=== PATIENT | male | born 1955 | race Caucasian/White ===

== ENCOUNTER 2016-12-19 13:47 | Inpatient (IN) | payer SELFPAY ==
[~2016-12-19] VITALS: Ht 172.7 cm; Wt 85.2 kg
[2016-12-19 14:39] LABS: Basophils # (auto) 0.1 uL; Basophils % (auto) 0.8 % (0.0-2.0); Eosinophils # (auto) 0.1 uL; Eosinophils % (auto) 1.3 % (0.0-7.0); Hematocrit 49.6 % (41.0-53.0); Hemoglobin 17.3 g/dL (13.5-17.5); Lymphocytes # (auto) 2.8 uL; Lymphocytes % (auto) 27.8 % (10.0-50.0); Mean Corpuscular Hemoglobin 31.8 pg (28.0-32.0); Mean Corpuscular Hgb Conc. 34.8 g/dL (32.0-36.0); Mean Corpuscular Volume 91.4 fL (80.0-100.0); Mean Platelet Volume 7.1 fL (6.9-10.8); Monocytes # (auto) 0.7 uL; Monocytes % (auto) 6.9 % (0.0-12.0); Neutrophils # (auto) 6.3 uL; Neutrophils % (auto) 63.2 % (37.0-80.0); Platelet Count (auto) 273 10^3/uL (140-450); Red Cell Distribution Width 13.5 % (11.8-14.3); White Blood Cell 9.9 10^3/uL (4.4-10.8)
[2016-12-19 15:07] LABS: Alkaline Phosphatase 91 U/L (45-117); Anion Gap 8 (5-15); Aspartate Aminotransferase 14 U/L (15-37); BUN/Creatinine Ratio 18.6; Bilirubin, Total 0.4 mg/dL (0.2-1.0); Blood Urea Nitrogen 18 mg/dL (7-18); Carbon Dioxide 24 mmol/L (21-32); Chloride 106 mmol/L (98-107); GFR African American 101 mL/min; GFR Non-African American 83 mL/min; Glucose 118 mg/dL (74-106); Potassium 3.4 mmol/L (3.5-5.1); Sodium 138 mmol/L (136-145); Total Protein 8.1 g/dL (6.4-8.2)
[2016-12-19] MEDS ORDERED: ASPirin 81 mg TAB PO ONE (17:00)
[2016-12-19] MEDS ORDERED: DILTIAZEM HCL 25 MG/5 ML VIAL IV ONE (17:00)
[2016-12-19] MEDS ORDERED: LACTULOSE 20Gm/30ML SOLN PO PRN (17:15)
[2016-12-19] MEDS ORDERED: MORPHINE SULF INJ 2 MG/ML SYRINGE 1ML IV PRN (17:15)
[2016-12-19] MEDS ORDERED: ACETAMINOPHEN 500 MG TAB PO PRN (17:15)
[2016-12-19] MEDS ORDERED: HYDROmorphone HCL 2 MG/ML VL IV PRN (17:15)
[2016-12-19] MEDS ORDERED: LORazepam 0.5 MG TAB PO PRN (17:15)
[2016-12-19] MEDS ORDERED: TEMAZEPAM 15 MG CAP PO PRN (17:15)
[2016-12-19] MEDS ORDERED: NITROGLYCERIN 0.4 MG SL TAB SL PRN (17:15)
[2016-12-19] MEDS ORDERED: HYDROcodone-ACET 5/325MG TAB PO PRN (17:15)
[2016-12-19 17:25] LABS: INR 1.01 (0.9-1.15); Partial Thromboplastin Time 29.6 sec (22.64-33.71)
[2016-12-19] MEDS ORDERED: ENOXAPARIN SOD 40 MG/0.4 ML SYRINGE SC ONE (17:45)
[2016-12-19] MEDS ORDERED: PANTOPRAZOLE 40 MG TAB PO ONE (17:45)
[2016-12-19] MEDS: SODIUM CHLORIDE 0.9% 1,000 ML IV SCH (18:01)
[2016-12-19 21:00] VITALS: BP 137/91
[2016-12-19 21:05] VITALS: BP 137/91
[2016-12-19] MEDS: ATORVASTATIN 20 MG TAB PO SCH (21:33)
[2016-12-19] MEDS: METOPROLOL TARTRATE 25 MG TAB PO SCH (21:34)
[2016-12-19 22:06] VITALS: BP 137/91
[2016-12-19 23:26] VITALS: BP 137/91
[2016-12-20] MEDS ORDERED: ATOR10TA52 PO (01:09)
[2016-12-20] MEDS ORDERED: AMLO5TAB2 PO (01:09)
[2016-12-20] MEDS ORDERED: ASPI81TA27 PO (01:09)
[2016-12-20] MEDS ORDERED: LOSA50TA6 PO (01:09)
[2016-12-20 05:00] VITALS: BP 136/81
[2016-12-20] MEDS: SODIUM CHLORIDE 0.9% 1,000 ML IV SCH (06:37)
[2016-12-20 06:42] LABS: Albumin 3.5 g/dL (3.4-5.0); BUN/Creatinine Ratio 21.5; Bilirubin, Total 0.8 mg/dL (0.2-1.0); Calcium 8.7 mg/dL (8.5-10.1); Potassium 3.8 mmol/L (3.5-5.1); Total Protein 6.8 g/dL (6.4-8.2)
[2016-12-20 09:00] VITALS: BP 142/99
[2016-12-20] MEDS ORDERED: ENOXAPARIN SOD 40 MG/0.4 ML SYRINGE SC SCH (10:00)
[2016-12-20] MEDS ORDERED: NITROGLYCERIN 0.2MG/HR TOPICAL PATCH TD SCH (10:00)
[2016-12-20] MEDS: ASPirin 81 mg TAB PO SCH (10:07)
[2016-12-20] MEDS: PANTOPRAZOLE 40 MG TAB PO SCH (10:08)
[2016-12-20] MEDS: METOPROLOL TARTRATE 25 MG TAB PO SCH (10:08)
[2016-12-20 10:37] LABS: B-Type Natriuretic Peptide 120.34 pg/mL (0-100)
[2016-12-20] MEDS ORDERED: METOPROLOL TARTRATE 25 MG TAB PO ONE (10:45)
[2016-12-20] MEDS: APIXABAN 5 MG TAB PO SCH ×2 (12:34→21:20)
[2016-12-20 13:00] VITALS: BP 129/89
[2016-12-20] MEDS ORDERED: LOSARTAN POTASSIUM 50 MG TAB PO ONE (14:45)
[2016-12-20 17:00] VITALS: BP 129/85
[2016-12-20 20:00] VITALS: BP 118/70
[2016-12-20 21:14] VITALS: BP 118/70
[2016-12-20] MEDS: ATORVASTATIN 20 MG TAB PO SCH (21:20)
[2016-12-20] MEDS: CARVEDILOL 3.125 MG TAB PO SCH (21:22)
[2016-12-20] MEDS ORDERED: METOPROLOL TARTRATE 50 MG TAB PO SCH (22:00)
[2016-12-21 05:00] VITALS: BP 146/88
[2016-12-21 06:47] LABS: BUN/Creatinine Ratio 20.2; Calcium 8.6 mg/dL (8.5-10.1)
[2016-12-21] MEDS: CARVEDILOL 3.125 MG TAB PO SCH ×2 (08:42→20:18)
[2016-12-21 09:31] VITALS: BP 148/97
[2016-12-21] MEDS: ASPirin 81 mg TAB PO SCH (09:45)
[2016-12-21] MEDS: APIXABAN 5 MG TAB PO SCH ×2 (09:46→22:07)
[2016-12-21] MEDS: LOSARTAN POTASSIUM 50 MG TAB PO SCH (09:46)
[2016-12-21] MEDS: PANTOPRAZOLE 40 MG TAB PO SCH (09:54)
[2016-12-21 14:17] VITALS: BP 139/79
[2016-12-21 17:15] VITALS: BP 143/84
[2016-12-21 20:00] VITALS: BP 115/74
[2016-12-21] MEDS: ATORVASTATIN 20 MG TAB PO SCH (22:06)
[2016-12-21 23:03] VITALS: BP 132/87
[2016-12-22 05:21] VITALS: BP 137/96
[2016-12-22] MEDS: CARVEDILOL 3.125 MG TAB PO SCH ×2 (08:19→20:22)
[2016-12-22 09:56] VITALS: BP 152/108
[2016-12-22] MEDS: PANTOPRAZOLE 40 MG TAB PO SCH (10:06)
[2016-12-22] MEDS: ASPirin 81 mg TAB PO SCH (10:07)
[2016-12-22] MEDS: LOSARTAN POTASSIUM 50 MG TAB PO SCH (10:07)
[2016-12-22] MEDS: APIXABAN 5 MG TAB PO SCH ×2 (10:07→21:57)
[2016-12-22 13:14] VITALS: BP 135/74
[2016-12-22 16:56] VITALS: BP 138/86
[2016-12-22 20:00] VITALS: BP 134/85
[2016-12-22 21:50] VITALS: BP 134/85
[2016-12-22] MEDS: ATORVASTATIN 20 MG TAB PO SCH (21:57)
[2016-12-23 05:43] VITALS: BP 158/88
[2016-12-23] MEDS: CARVEDILOL 3.125 MG TAB PO SCH (08:42)
[2016-12-23] MEDS ORDERED: ADENOSINE 72 MG in GIVE UN-DILUTED 0 ML IV ONE (09:00)
[2016-12-23 09:16] VITALS: BP 141/88
[2016-12-23] MEDS: LOSARTAN POTASSIUM 50 MG TAB PO SCH (11:36)
[2016-12-23] MEDS: ASPirin 81 mg TAB PO SCH (11:37)
[2016-12-23] MEDS: PANTOPRAZOLE 40 MG TAB PO SCH (11:37)
[2016-12-23] MEDS: APIXABAN 5 MG TAB PO SCH (11:37)
[2016-12-23 13:00] VITALS: BP 138/92
[2016-12-23] MEDS ORDERED: APIX5TAB PO (15:36)
[2016-12-23] MEDS ORDERED: CAR125T PO (15:36)
[2016-12-23] MEDS ORDERED: LOSA50TA6 PO (15:36)
[2016-12-23] MEDS ORDERED: ASPI81TA27 PO (15:36)
[2016-12-23] MEDS ORDERED: PANT40T PO (15:36)
[2016-12-23] MEDS ORDERED: ATOR20TA50 PO (15:36)
[2016-12-23 17:27] VITALS: BP 151/92
[2016-12-23] MEDS ORDERED: CARVEDILOL 12.5 MG TAB PO SCH ×3 (20:00)
== END 2016-12-23 18:23 | disposition home or self-care (01) | DRG 303 ==
LOC: ER 13:47 → TELE 13:48 → TELE-CENTR 20:54
PROVIDERS: ADMIT Internal Medicine; ATTEND Internal Medicine
DX: I25.5 Ischemic cardiomyopathy (principal); I48.92 Unspecified atrial flutter; I48.91 Unspecified atrial fibrillation; E78.00 Pure hypercholesterolemia, unspecified; E78.5 Hyperlipidemia, unspecified; E87.6 Hypokalemia; I10 Essential (primary) hypertension; Z53.29 Procedure and treatment not carried out because of patient's decision for other reasons; I25.10 Atherosclerotic heart disease of native coronary artery without angina pectoris; Z87.891 Personal history of nicotine dependence; Z83.3 Family history of diabetes mellitus; Z80.1 Family history of malignant neoplasm of trachea, bronchus and lung; I25.2 Old myocardial infarction; Z95.5 Presence of coronary angioplasty implant and graft; Z82.49 Family history of ischemic heart disease and other diseases of the circulatory system
CPT/HCPCS: 36415; 71020; 78452; 80048; 80053; 80061; 80307; 82550; 83735; 83880; 84443; 84484; 85025; 85379; 85610; 85652; 85730; 86141; 93005; 93017; 93306; 94761; 96361; 96372; 96374; J0153

== ENCOUNTER 2017-12-04 11:21 | Inpatient (IN) | payer MEDICAID, OTHER ==
[~2017-12-04] VITALS: Ht 170.2 cm; Wt 75.2 kg
[~2017-12-04 11:21] MED LIST: APIX5TAB PO; ASPI81TA27 PO; ATOR20TA50 PO; CAR125T PO; LOSA-46 PO; PANT40T PO
[2017-12-04] MEDS ORDERED: CLOPIDOGREL BISULFATE 75 MG TAB PO ONE (11:45)
[2017-12-04 12:11] LABS: Basophils # (auto) 0.1 uL; Basophils % (auto) 0.9 % (0.0-2.0); Eosinophils # (auto) 0 uL; Eosinophils % (auto) 0.3 % (0.0-7.0); Hematocrit 49.1 % (41.0-53.0); Hemoglobin 17.5 g/dL (13.5-17.5); Lymphocytes # (auto) 1.5 uL; Lymphocytes % (auto) 15.6 % (10.0-50.0); Mean Corpuscular Hemoglobin 32.4 pg (28.0-32.0); Mean Corpuscular Hgb Conc. 35.5 g/dL (32.0-36.0); Mean Corpuscular Volume 91.1 fL (80.0-100.0); Monocytes # (auto) 0.5 uL; Monocytes % (auto) 5.5 % (0.0-12.0); Neutrophils # (auto) 7.7 uL; Neutrophils % (auto) 77.7 % (37.0-80.0); Nucleated Red Blood Cells % 0.1 %; Platelet Count (auto) 253 10^3/uL (140-450); Red Cell Distribution Width 13.6 % (11.8-14.3); White Blood Cell 9.9 10^3/uL (4.4-10.8)
[2017-12-04 12:26] LABS: Alanine Aminotransferase 25 U/L (16-61); Albumin 3.9 g/dL (3.4-5.0); Anion Gap 8 (5-15); Aspartate Aminotransferase 21 U/L (15-37); BUN/Creatinine Ratio 14.6; Blood Urea Nitrogen 13 mg/dL (7-18); Calcium 8.6 mg/dL (8.5-10.1); Carbon Dioxide 23 mmol/L (21-32); Chloride 108 mmol/L (98-107); GFR African American 111 mL/min; GFR Non-African American 91 mL/min; Glucose 122 mg/dL (74-106); Sodium 139 mmol/L (136-145)
[2017-12-04 12:27] LABS: INR 1.04 (0.9-1.15); Partial Thromboplastin Time 29.7 sec (23.78-33.04); Prothrombin Time 11.1 sec (9.27-12.13)
[2017-12-04 12:31] LABS: Alkaline Phosphatase 94 U/L (45-117); Bilirubin, Total 1.2 mg/dL (0.2-1.0)
[2017-12-04] MEDS ORDERED: LORazepam 0.5 MG TAB PO PRN (12:45)
[2017-12-04] MEDS ORDERED: ONDANSETRON HCL 4 MG/2 ML VIAL IV PRN (12:45)
[2017-12-04] MEDS ORDERED: TEMAZEPAM 15 MG CAP PO PRN (12:45)
[2017-12-04] MEDS ORDERED: LACTULOSE 20Gm/30ML SOLN PO PRN (12:45)
[2017-12-04] MEDS ORDERED: NITROGLYCERIN 0.4 MG SL TAB SL PRN (12:45)
[2017-12-04] MEDS ORDERED: DEXTROSE (50%) 50ML SYRG IV PRN (12:45)
[2017-12-04] MEDS ORDERED: MORPHINE SULFATE 4 MG/ML SYR/VIAL IV PRN ×2 (12:45)
[2017-12-04] MEDS: CARVEDILOL 12.5 MG TAB PO SCH ×2 (12:54→23:56)
[2017-12-04] MEDS: APIXABAN 5 MG TAB PO SCH ×2 (12:54→21:29)
[2017-12-04] MEDS ORDERED: ENALAPRIL MALEATE 2.5 MG TAB PO ONE (13:00)
[2017-12-04] MEDS ORDERED: ASPirin 81 mg TAB PO ONE (13:00)
[2017-12-04] MEDS ORDERED: PANTOPRAZOLE 40 MG TAB PO ONE (13:00)
[2017-12-04] MEDS ORDERED: LOSARTAN POTASSIUM 50 MG TAB PO ONE (13:00)
[2017-12-04] MEDS ORDERED: POTASSIUM CHL 20 Meq TABLET PO ONE (13:00)
[2017-12-04] MEDS ORDERED: FUROSEMIDE 40 MG/4 ML VIAL IV ONE (13:00)
[2017-12-04 13:44] LABS: Urine WBC None Seen /hpf (0 - 3)
[2017-12-04 14:05] LABS: Urine Bacteria NONE SEEN /hpf (None Seen); Urine Blood Negative /uL (Negative); Urine Mucus FEW (None Seen)
[2017-12-04 14:08] LABS: Alcohol, Urine < 3.0 mg/dL (0-5); Amphetamine Screen, Urine NEGATIVE (NEGATIVE); Barbiturate Scree,Urine NEGATIVE (NEGATIVE); Benzodiazephine Screen, Urine NEGATIVE (NEGATIVE); Cannabinoid Screen, Urine NEGATIVE (NEGATIVE); Cocaine Screen, Urine NEGATIVE (NEGATIVE); Opiate Scree,Urine NEGATIVE (NEGATIVE); Phencyclidine Screen, Urine NEGATIVE (NEGATIVE)
[2017-12-04] MEDS ORDERED: METOPROLOL TARTRATE 1MG/1ML-5ML VIAL IV ONE (14:30)
[2017-12-04] MEDS ORDERED: DILTIAZEM HCL 25 MG/5 ML VIAL IV ONE (14:30)
[2017-12-04] MEDS ORDERED: DILTIAZEM 125mg/125ml BAG KIT 125 ML IV SCH (14:30)
[2017-12-04] MEDS: ACCU-CHEK COMFORT CURVE STRIP VI SCH ×2 (18:30→23:48)
[2017-12-04] MEDS: ATORVASTATIN 20 MG TAB PO SCH (21:29)
[2017-12-05] MEDS: ACCU-CHEK COMFORT CURVE STRIP VI SCH ×3 (06:00→18:39)
[2017-12-05] MEDS: PANTOPRAZOLE 40 MG TAB PO SCH (10:00)
[2017-12-05] MEDS ORDERED: FUROSEMIDE 40 MG/4 ML VIAL IV SCH (10:00)
[2017-12-05] MEDS ORDERED: LOSARTAN POTASSIUM 50 MG TAB PO SCH (10:00)
[2017-12-05] MEDS ORDERED: ENALAPRIL MALEATE 2.5 MG TAB PO SCH (10:00)
[2017-12-05] MEDS: APIXABAN 5 MG TAB PO SCH ×2 (10:00→21:59)
[2017-12-05] MEDS: POTASSIUM CHL 20 Meq TABLET PO SCH (10:00)
[2017-12-05] MEDS: ASPirin 81 mg TAB PO SCH (10:00)
[2017-12-05] MEDS: CARVEDILOL 12.5 MG TAB PO SCH (13:23)
[2017-12-05 14:15] LABS: Cholesterol 165 mg/dL (< 200); HDL Cholesterol 30 mg/dL (40-59); LDL Cholesterol 141 mg/dL (< 100); Triglycerides 88 mg/dL (< 150)
[2017-12-05 17:00] VITALS: BP 146/81
[2017-12-05 20:00] VITALS: BP 124/75
[2017-12-05] MEDS: ATORVASTATIN 20 MG TAB PO SCH (21:59)
[2017-12-05 22:00] VITALS: BP 124/75
[2017-12-06] MEDS: ACCU-CHEK COMFORT CURVE STRIP VI SCH ×4 (01:11→16:57)
[2017-12-06] MEDS: CARVEDILOL 12.5 MG TAB PO SCH ×2 (01:13→16:57)
[2017-12-06 05:00] VITALS: BP 115/60
[2017-12-06 06:57] LABS: Basophils # (auto) 0 uL; Basophils % (auto) 0.4 % (0.0-2.0); Eosinophils # (auto) 0.2 uL; Eosinophils % (auto) 1.8 % (0.0-7.0); Hematocrit 48.3 % (41.0-53.0); Hemoglobin 16.9 g/dL (13.5-17.5); Lymphocytes % (auto) 28.6 % (10.0-50.0); Mean Corpuscular Hemoglobin 31.9 pg (28.0-32.0); Mean Corpuscular Hgb Conc. 34.9 g/dL (32.0-36.0); Mean Corpuscular Volume 91.3 fL (80.0-100.0); Monocytes # (auto) 0.7 uL; Monocytes % (auto) 6.5 % (0.0-12.0); Neutrophils # (auto) 6.6 uL; Neutrophils % (auto) 62.7 % (37.0-80.0); Nucleated Red Blood Cells % 0.3 %; Platelet Count (auto) 252 10^3/uL (140-450); Red Blood Cells 5.29 10^6/uL (4.5-5.90); Red Cell Distribution Width 14.3 % (11.8-14.3); White Blood Cell 10.6 10^3/uL (4.4-10.8)
[2017-12-06 07:15] LABS: Potassium 3.6 mmol/L (3.5-5.1)
[2017-12-06 07:19] LABS: BUN/Creatinine Ratio 23.1; Calcium 8.7 mg/dL (8.5-10.1)
[2017-12-06 09:00] VITALS: BP 122/65
[2017-12-06] MEDS ORDERED: LACTULOSE 20Gm/30ML SOLN PO ONE (10:30)
[2017-12-06] MEDS: APIXABAN 5 MG TAB PO SCH ×2 (10:46→21:05)
[2017-12-06] MEDS: POTASSIUM CHL 20 Meq TABLET PO SCH (10:46)
[2017-12-06] MEDS: ASPirin 81 mg TAB PO SCH (10:46)
[2017-12-06] MEDS: PANTOPRAZOLE 40 MG TAB PO SCH (10:46)
[2017-12-06 13:00] VITALS: BP 140/86
[2017-12-06 17:01] VITALS: BP 130/85
[2017-12-06] MEDS: DOCUSATE SOD 100 MG CAP PO SCH (21:04)
[2017-12-06] MEDS: ATORVASTATIN 20 MG TAB PO SCH (21:05)
[2017-12-06 22:29] VITALS: BP 107/55
[2017-12-07] MEDS: ACCU-CHEK COMFORT CURVE STRIP VI SCH ×2 (00:30→05:34)
[2017-12-07] MEDS: CARVEDILOL 12.5 MG TAB PO SCH ×2 (00:30→14:42)
[2017-12-07 05:14] VITALS: BP 105/70
[2017-12-07 06:32] LABS: Calcium 8.5 mg/dL (8.5-10.1); Potassium 4.2 mmol/L (3.5-5.1)
[2017-12-07 06:36] LABS: Basophils # (auto) 0.1 uL; Basophils % (auto) 0.8 % (0.0-2.0); Eosinophils # (auto) 0.2 uL; Hematocrit 49.5 % (41.0-53.0); Hemoglobin 17.6 g/dL (13.5-17.5); Lymphocytes # (auto) 3.2 uL; Lymphocytes % (auto) 33.1 % (10.0-50.0); Mean Corpuscular Hemoglobin 32.3 pg (28.0-32.0); Mean Corpuscular Hgb Conc. 35.5 g/dL (32.0-36.0); Mean Corpuscular Volume 90.8 fL (80.0-100.0); Monocytes # (auto) 0.6 uL; Neutrophils # (auto) 5.5 uL; Neutrophils % (auto) 58.1 % (37.0-80.0); Nucleated Red Blood Cells % 0.2 %; Platelet Count (auto) 238 10^3/uL (140-450); Red Blood Cells 5.45 10^6/uL (4.5-5.90); White Blood Cell 9.5 10^3/uL (4.4-10.8)
[2017-12-07 09:00] VITALS: BP 123/59
[2017-12-07] MEDS: POTASSIUM CHL 20 Meq TABLET PO SCH (09:32)
[2017-12-07] MEDS: DOCUSATE SOD 100 MG CAP PO SCH ×2 (09:32→21:29)
[2017-12-07] MEDS: APIXABAN 5 MG TAB PO SCH ×2 (09:32→21:29)
[2017-12-07] MEDS: ASPirin 81 mg TAB PO SCH (09:32)
[2017-12-07] MEDS: PANTOPRAZOLE 40 MG TAB PO SCH (09:33)
[2017-12-07] MEDS: LISINOPRIL 10 MG TAB PO SCH (10:00)
[2017-12-07] MEDS: FUROSEMIDE 20 MG TAB PO SCH (10:00)
[2017-12-07] MEDS: SPIRONOLACTONE 25 MG TAB PO SCH (12:14)
[2017-12-07 13:00] VITALS: BP 118/86
[2017-12-07 17:00] VITALS: BP 150/87
[2017-12-07] MEDS: ATORVASTATIN 20 MG TAB PO SCH (21:29)
[2017-12-07 22:19] VITALS: BP 128/78
[2017-12-08] MEDS: CARVEDILOL 12.5 MG TAB PO SCH ×3 (00:19→23:19)
[2017-12-08 05:03] VITALS: BP 142/83
[2017-12-08 06:16] LABS: Basophils # (auto) 0.1 uL; Basophils % (auto) 0.9 % (0.0-2.0); Eosinophils # (auto) 0.2 uL; Monocytes # (auto) 0.7 uL; Neutrophils # (auto) 7.9 uL; Red Blood Cells 5.63 10^6/uL (4.5-5.90)
[2017-12-08 06:17] LABS: Eosinophils % (auto) 1.9 % (0.0-7.0); Hematocrit 50.8 % (41.0-53.0); Lymphocytes # (auto) 2.7 uL; Lymphocytes % (auto) 23.3 % (10.0-50.0); Mean Corpuscular Hemoglobin 32.4 pg (28.0-32.0); Mean Corpuscular Hgb Conc. 35.8 g/dL (32.0-36.0); Mean Corpuscular Volume 90.3 fL (80.0-100.0); Monocytes % (auto) 5.9 % (0.0-12.0); Nucleated Red Blood Cells % 0.3 %; Platelet Count (auto) 238 10^3/uL (140-450); Red Cell Distribution Width 13.7 % (11.8-14.3); White Blood Cell 11.7 10^3/uL (4.4-10.8)
[2017-12-08 06:18] LABS: Hemoglobin 17.9 g/dL (13.5-17.5)
[2017-12-08 06:29] LABS: Calcium 8.8 mg/dL (8.5-10.1); Potassium 4.2 mmol/L (3.5-5.1)
[2017-12-08 06:33] LABS: BUN/Creatinine Ratio 23.1
[2017-12-08 08:36] VITALS: BP 142/90
[2017-12-08] MEDS: PANTOPRAZOLE 40 MG TAB PO SCH (09:18)
[2017-12-08] MEDS: SPIRONOLACTONE 25 MG TAB PO SCH (09:18)
[2017-12-08] MEDS: POTASSIUM CHL 20 Meq TABLET PO SCH (09:18)
[2017-12-08] MEDS: APIXABAN 5 MG TAB PO SCH ×2 (09:18→21:07)
[2017-12-08] MEDS: LISINOPRIL 10 MG TAB PO SCH (09:19)
[2017-12-08] MEDS: ASPirin 81 mg TAB PO SCH (09:19)
[2017-12-08] MEDS: DOCUSATE SOD 100 MG CAP PO SCH ×2 (09:20→21:07)
[2017-12-08] MEDS: FUROSEMIDE 20 MG TAB PO SCH (09:20)
[2017-12-08 12:16] VITALS: BP 129/98
[2017-12-08 17:17] VITALS: BP 124/79
[2017-12-08] MEDS: traMADol HCL 50 MG TAB PO PRN (18:23)
[2017-12-08] MEDS: ATORVASTATIN 20 MG TAB PO SCH (21:07)
[2017-12-08 22:00] VITALS: BP 106/71
[2017-12-09 04:41] VITALS: BP 104/65
[2017-12-09 06:28] LABS: Basophils # (auto) 0.1 uL; Basophils % (auto) 0.9 % (0.0-2.0); Eosinophils # (auto) 0.2 uL; Hematocrit 48.8 % (41.0-53.0); Hemoglobin 17.3 g/dL (13.5-17.5); Lymphocytes # (auto) 2.5 uL; Lymphocytes % (auto) 25.3 % (10.0-50.0); Mean Corpuscular Hemoglobin 32.2 pg (28.0-32.0); Mean Corpuscular Hgb Conc. 35.5 g/dL (32.0-36.0); Mean Corpuscular Volume 90.7 fL (80.0-100.0); Monocytes # (auto) 0.5 uL; Monocytes % (auto) 5.6 % (0.0-12.0); Neutrophils # (auto) 6.5 uL; Neutrophils % (auto) 66.2 % (37.0-80.0); Platelet Count (auto) 223 10^3/uL (140-450); Red Blood Cells 5.38 10^6/uL (4.5-5.90); White Blood Cell 9.8 10^3/uL (4.4-10.8)
[2017-12-09 06:42] LABS: Potassium 4.1 mmol/L (3.5-5.1)
[2017-12-09 06:52] LABS: BUN/Creatinine Ratio 24.5; Calcium 8.7 mg/dL (8.5-10.1)
[2017-12-09 09:00] VITALS: BP 141/86
[2017-12-09] MEDS: ASPirin 81 mg TAB PO SCH (11:10)
[2017-12-09] MEDS: DOCUSATE SOD 100 MG CAP PO SCH ×2 (11:10→21:44)
[2017-12-09] MEDS: POTASSIUM CHL 20 Meq TABLET PO SCH (11:10)
[2017-12-09] MEDS: SPIRONOLACTONE 25 MG TAB PO SCH (11:10)
[2017-12-09] MEDS: APIXABAN 5 MG TAB PO SCH ×2 (11:10→21:44)
[2017-12-09] MEDS: PANTOPRAZOLE 40 MG TAB PO SCH (11:11)
[2017-12-09] MEDS: FUROSEMIDE 20 MG TAB PO SCH (11:11)
[2017-12-09] MEDS: LISINOPRIL 10 MG TAB PO SCH (11:12)
[2017-12-09] MEDS: CARVEDILOL 12.5 MG TAB PO SCH (12:45)
[2017-12-09 13:00] VITALS: BP 118/72
[2017-12-09 17:00] VITALS: BP 126/89
[2017-12-09 21:41] VITALS: BP 128/74
[2017-12-09] MEDS: ATORVASTATIN 20 MG TAB PO SCH (21:44)
[2017-12-10] MEDS: CARVEDILOL 12.5 MG TAB PO SCH ×2 (00:56→12:45)
[2017-12-10 05:00] VITALS: BP 118/66
[2017-12-10 07:19] LABS: Basophils # (auto) 0.1 uL; Basophils % (auto) 0.9 % (0.0-2.0); Eosinophils # (auto) 0.2 uL; Eosinophils % (auto) 1.9 % (0.0-7.0); Hematocrit 48.3 % (41.0-53.0); Hemoglobin 16.7 g/dL (13.5-17.5); Lymphocytes # (auto) 2.5 uL; Lymphocytes % (auto) 23.8 % (10.0-50.0); Mean Corpuscular Hemoglobin 31.4 pg (28.0-32.0); Mean Corpuscular Hgb Conc. 34.7 g/dL (32.0-36.0); Mean Corpuscular Volume 90.7 fL (80.0-100.0); Monocytes # (auto) 0.7 uL; Monocytes % (auto) 6.6 % (0.0-12.0); Neutrophils # (auto) 7.2 uL; Neutrophils % (auto) 66.8 % (37.0-80.0); Nucleated Red Blood Cells % 0.6 %; Platelet Count (auto) 247 10^3/uL (140-450); Red Blood Cells 5.32 10^6/uL (4.5-5.90); Red Cell Distribution Width 13.9 % (11.8-14.3); White Blood Cell 10.7 10^3/uL (4.4-10.8)
[2017-12-10 07:29] LABS: BUN/Creatinine Ratio 22.9; Calcium 8.6 mg/dL (8.5-10.1)
[2017-12-10 09:22] VITALS: BP 108/67
[2017-12-10] MEDS: LISINOPRIL 10 MG TAB PO SCH (10:00)
[2017-12-10] MEDS: POTASSIUM CHL 20 Meq TABLET PO SCH (11:09)
[2017-12-10] MEDS: APIXABAN 5 MG TAB PO SCH ×2 (11:09→21:54)
[2017-12-10] MEDS: DOCUSATE SOD 100 MG CAP PO SCH ×2 (11:09→21:54)
[2017-12-10] MEDS: ASPirin 81 mg TAB PO SCH (11:09)
[2017-12-10] MEDS: SPIRONOLACTONE 25 MG TAB PO SCH (11:09)
[2017-12-10] MEDS: FUROSEMIDE 20 MG TAB PO SCH (11:10)
[2017-12-10] MEDS: PANTOPRAZOLE 40 MG TAB PO SCH (11:10)
[2017-12-10 13:00] VITALS: BP 124/76
[2017-12-10 16:50] VITALS: BP 123/77
[2017-12-10] MEDS: ATORVASTATIN 20 MG TAB PO SCH (21:54)
[2017-12-10 21:55] VITALS: BP 124/68
[2017-12-11] MEDS: CARVEDILOL 12.5 MG TAB PO SCH ×2 (00:58→13:41)
[2017-12-11 05:24] VITALS: BP 117/65
[2017-12-11 09:00] VITALS: BP 118/68
[2017-12-11] MEDS: ASPirin 81 mg TAB PO SCH (10:34)
[2017-12-11] MEDS: APIXABAN 5 MG TAB PO SCH ×2 (10:34→21:51)
[2017-12-11] MEDS: POTASSIUM CHL 20 Meq TABLET PO SCH (10:35)
[2017-12-11] MEDS: DOCUSATE SOD 100 MG CAP PO SCH ×2 (10:35→21:51)
[2017-12-11] MEDS: SPIRONOLACTONE 25 MG TAB PO SCH (10:35)
[2017-12-11] MEDS: PANTOPRAZOLE 40 MG TAB PO SCH (10:35)
[2017-12-11] MEDS: FUROSEMIDE 20 MG TAB PO SCH (10:36)
[2017-12-11 13:00] VITALS: BP 141/85
[2017-12-11] MEDS: LISINOPRIL 10 MG TAB PO SCH (13:41)
[2017-12-11 17:00] VITALS: BP 121/69
[2017-12-11 20:12] VITALS: BP 114/67
[2017-12-11 21:50] VITALS: BP 114/67
[2017-12-11] MEDS: ATORVASTATIN 20 MG TAB PO SCH (21:51)
[2017-12-11] MEDS: traMADol HCL 50 MG TAB PO PRN (21:53)
[2017-12-12] MEDS: CARVEDILOL 12.5 MG TAB PO SCH ×3 (01:28→22:07)
[2017-12-12 05:16] VITALS: BP 101/69
[2017-12-12 09:00] VITALS: BP 100/62
[2017-12-12] MEDS: ASPirin 81 mg TAB PO SCH (10:53)
[2017-12-12] MEDS: SPIRONOLACTONE 25 MG TAB PO SCH (10:53)
[2017-12-12] MEDS: DOCUSATE SOD 100 MG CAP PO SCH ×2 (10:53→22:00)
[2017-12-12] MEDS: POTASSIUM CHL 20 Meq TABLET PO SCH (10:54)
[2017-12-12] MEDS: APIXABAN 5 MG TAB PO SCH ×2 (10:54→22:03)
[2017-12-12] MEDS: FUROSEMIDE 20 MG TAB PO SCH (10:54)
[2017-12-12] MEDS: PANTOPRAZOLE 40 MG TAB PO SCH (10:54)
[2017-12-12] MEDS: LISINOPRIL 10 MG TAB PO SCH (10:55)
[2017-12-12 13:00] VITALS: BP 95/70
[2017-12-12] MEDS: traMADol HCL 50 MG TAB PO PRN (16:49)
[2017-12-12 17:00] VITALS: BP 128/75
[2017-12-12 20:00] VITALS: BP 95/70
[2017-12-12] MEDS: ATORVASTATIN 20 MG TAB PO SCH (22:04)
[2017-12-12 22:23] VITALS: BP 107/71
[2017-12-13 05:00] VITALS: BP 113/92
[2017-12-13] MEDS: traMADol HCL 50 MG TAB PO PRN ×2 (05:48→16:26)
[2017-12-13 09:00] VITALS: BP 116/62
[2017-12-13] MEDS: ASPirin 81 mg TAB PO SCH (09:40)
[2017-12-13] MEDS: LISINOPRIL 10 MG TAB PO SCH (09:41)
[2017-12-13] MEDS: DOCUSATE SOD 100 MG CAP PO SCH ×2 (09:41→22:31)
[2017-12-13] MEDS: APIXABAN 5 MG TAB PO SCH ×2 (09:41→22:31)
[2017-12-13] MEDS: FUROSEMIDE 20 MG TAB PO SCH (09:42)
[2017-12-13] MEDS: POTASSIUM CHL 20 Meq TABLET PO SCH (09:42)
[2017-12-13] MEDS: PANTOPRAZOLE 40 MG TAB PO SCH (09:42)
[2017-12-13] MEDS: SPIRONOLACTONE 25 MG TAB PO SCH (09:42)
[2017-12-13] MEDS: NYSTATIN (MOUTH-THROAT) 500,000 UNITS/5 ML SUSP MT SCH ×3 (11:45→22:31)
[2017-12-13] MEDS: CARVEDILOL 12.5 MG TAB PO SCH (12:45)
[2017-12-13 13:00] VITALS: BP 100/73
[2017-12-13 16:55] VITALS: BP 117/69
[2017-12-13 22:00] VITALS: BP 92/53
[2017-12-13] MEDS: ATORVASTATIN 20 MG TAB PO SCH (22:31)
[2017-12-14] MEDS: CARVEDILOL 12.5 MG TAB PO SCH ×2 (01:14→12:45)
[2017-12-14] MEDS: NYSTATIN (MOUTH-THROAT) 500,000 UNITS/5 ML SUSP MT SCH (06:00)
[2017-12-14 07:33] LABS: Basophils # (auto) 0 uL; Basophils % (auto) 0.2 % (0.0-2.0); Eosinophils # (auto) 0 uL; Eosinophils % (auto) 0.1 % (0.0-7.0); Hematocrit 46.2 % (41.0-53.0); Hemoglobin 16.2 g/dL (13.5-17.5); Lymphocytes # (auto) 1.3 uL; Mean Corpuscular Hgb Conc. 35.1 g/dL (32.0-36.0); Mean Corpuscular Volume 91.3 fL (80.0-100.0); Monocytes # (auto) 0.7 uL; Monocytes % (auto) 4.2 % (0.0-12.0); Neutrophils # (auto) 14.3 uL; Neutrophils % (auto) 87.5 % (37.0-80.0); Nucleated Red Blood Cells % 0.1 %; Platelet Count (auto) 248 10^3/uL (140-450); Red Blood Cells 5.06 10^6/uL (4.5-5.90); Red Cell Distribution Width 13.7 % (11.8-14.3); White Blood Cell 16.3 10^3/uL (4.4-10.8)
[2017-12-14 07:34] LABS: Calcium 9.5 mg/dL (8.5-10.1); Potassium 4.6 mmol/L (3.5-5.1)
[2017-12-14 07:36] LABS: BUN/Creatinine Ratio 28.1
[2017-12-14 08:59] VITALS: BP 95/57
[2017-12-14] MEDS: LISINOPRIL 10 MG TAB PO SCH (10:00)
[2017-12-14] MEDS: POTASSIUM CHL 20 Meq TABLET PO SCH (10:13)
[2017-12-14] MEDS: PANTOPRAZOLE 40 MG TAB PO SCH (10:13)
[2017-12-14] MEDS: APIXABAN 5 MG TAB PO SCH ×2 (10:13→21:48)
[2017-12-14] MEDS: SPIRONOLACTONE 25 MG TAB PO SCH (10:13)
[2017-12-14] MEDS: ASPirin 81 mg TAB PO SCH (10:13)
[2017-12-14] MEDS: FUROSEMIDE 20 MG TAB PO SCH (10:13)
[2017-12-14] MEDS: FLUCONAZOLE 200MG/100ML 100 ML IV SCH (10:14)
[2017-12-14] MEDS: DOCUSATE SOD 100 MG CAP PO SCH ×2 (10:14→21:47)
[2017-12-14] MEDS: Ensure Enlive Chocolate 8oz Bottle PO SCH ×2 (12:00→18:00)
[2017-12-14 13:00] VITALS: BP_SYST 112; BP_SYST 119; BP_DIAS 65; BP_DIAS 72
[2017-12-14 17:00] VITALS: BP 119/90
[2017-12-14 21:30] VITALS: BP 107/62
[2017-12-14] MEDS: ATORVASTATIN 20 MG TAB PO SCH (21:47)
[2017-12-15] MEDS: CARVEDILOL 12.5 MG TAB PO SCH ×2 (00:45→12:45)
[2017-12-15 05:00] VITALS: BP 108/69
[2017-12-15 06:46] LABS: Basophils # (auto) 0.1 uL; Basophils % (auto) 0.6 % (0.0-2.0); Eosinophils # (auto) 0 uL; Eosinophils % (auto) 0.4 % (0.0-7.0); Hematocrit 44.1 % (41.0-53.0); Hemoglobin 15.6 g/dL (13.5-17.5); Lymphocytes # (auto) 1.2 uL; Lymphocytes % (auto) 9.6 % (10.0-50.0); Mean Corpuscular Hemoglobin 32.2 pg (28.0-32.0); Mean Corpuscular Hgb Conc. 35.4 g/dL (32.0-36.0); Mean Corpuscular Volume 90.9 fL (80.0-100.0); Monocytes # (auto) 0.3 uL; Monocytes % (auto) 2.2 % (0.0-12.0); Neutrophils # (auto) 10.9 uL; Neutrophils % (auto) 87.2 % (37.0-80.0); Platelet Count (auto) 260 10^3/uL (140-450); Red Blood Cells 4.86 10^6/uL (4.5-5.90); Red Cell Distribution Width 13.8 % (11.8-14.3); White Blood Cell 12.5 10^3/uL (4.4-10.8)
[2017-12-15 06:53] LABS: Potassium 4.3 mmol/L (3.5-5.1)
[2017-12-15 06:57] LABS: Calcium 9.6 mg/dL (8.5-10.1)
[2017-12-15] MEDS: Ensure Enlive Chocolate 8oz Bottle PO SCH ×3 (08:00→18:00)
[2017-12-15 09:08] VITALS: BP 112/73
[2017-12-15] MEDS: LISINOPRIL 10 MG TAB PO SCH ×2 (10:00→10:22)
[2017-12-15] MEDS: PANTOPRAZOLE 40 MG TAB PO SCH (10:20)
[2017-12-15] MEDS: FLUCONAZOLE 200MG/100ML 100 ML IV SCH (10:20)
[2017-12-15] MEDS: POTASSIUM CHL 20 Meq TABLET PO SCH (10:21)
[2017-12-15] MEDS: SPIRONOLACTONE 25 MG TAB PO SCH (10:21)
[2017-12-15] MEDS: APIXABAN 5 MG TAB PO SCH ×2 (10:21→21:29)
[2017-12-15] MEDS: ASPirin 81 mg TAB PO SCH (10:21)
[2017-12-15] MEDS: FUROSEMIDE 20 MG TAB PO SCH (10:21)
[2017-12-15] MEDS: DOCUSATE SOD 100 MG CAP PO SCH ×2 (10:23→21:29)
[2017-12-15 13:00] VITALS: BP 107/69
[2017-12-15 16:36] VITALS: BP 118/72
[2017-12-15] MEDS: ATORVASTATIN 20 MG TAB PO SCH (21:30)
[2017-12-15 22:00] VITALS: BP 115/67
[2017-12-16] MEDS: CARVEDILOL 12.5 MG TAB PO SCH ×2 (02:00→13:09)
[2017-12-16 05:00] VITALS: BP 101/61
[2017-12-16 07:51] LABS: Basophils # (auto) 0.1 uL; Basophils % (auto) 0.7 % (0.0-2.0); Eosinophils # (auto) 0.1 uL; Hematocrit 42.8 % (41.0-53.0); Lymphocytes # (auto) 1.3 uL; Mean Corpuscular Hemoglobin 32.2 pg (28.0-32.0); Mean Corpuscular Hgb Conc. 35.1 g/dL (32.0-36.0); Mean Corpuscular Volume 91.9 fL (80.0-100.0); Monocytes # (auto) 0.7 uL; Monocytes % (auto) 5.9 % (0.0-12.0); Neutrophils # (auto) 9.1 uL; Neutrophils % (auto) 80.4 % (37.0-80.0); Nucleated Red Blood Cells % 0.1 %; Platelet Count (auto) 285 10^3/uL (140-450); Red Blood Cells 4.66 10^6/uL (4.5-5.90); Red Cell Distribution Width 13.8 % (11.8-14.3); White Blood Cell 11.2 10^3/uL (4.4-10.8)
[2017-12-16 08:00] VITALS: BP 109/66
[2017-12-16 08:09] LABS: BUN/Creatinine Ratio 31.6; Calcium 9.2 mg/dL (8.5-10.1); Potassium 4.4 mmol/L (3.5-5.1)
[2017-12-16 09:00] VITALS: BP 109/66
[2017-12-16] MEDS: Ensure Enlive Chocolate 8oz Bottle PO SCH ×3 (09:21→17:34)
[2017-12-16] MEDS: FLUCONAZOLE 200MG/100ML 100 ML IV SCH (09:24)
[2017-12-16] MEDS: APIXABAN 5 MG TAB PO SCH ×2 (09:24→21:36)
[2017-12-16] MEDS: SPIRONOLACTONE 25 MG TAB PO SCH (09:25)
[2017-12-16] MEDS: PANTOPRAZOLE 40 MG TAB PO SCH (09:25)
[2017-12-16] MEDS: LISINOPRIL 10 MG TAB PO SCH (09:25)
[2017-12-16] MEDS: DOCUSATE SOD 100 MG CAP PO SCH ×2 (09:26→21:36)
[2017-12-16] MEDS: ASPirin 81 mg TAB PO SCH (09:26)
[2017-12-16] MEDS: POTASSIUM CHL 20 Meq TABLET PO SCH (09:26)
[2017-12-16] MEDS: FUROSEMIDE 20 MG TAB PO SCH (09:27)
[2017-12-16 13:00] VITALS: BP 107/63
[2017-12-16 17:00] VITALS: BP 92/60
[2017-12-16] MEDS ORDERED: THROAT LOZENGES(CEPASTAT) MT PRN (19:00)
[2017-12-16] MEDS: ATORVASTATIN 20 MG TAB PO SCH (21:36)
[2017-12-16 22:00] VITALS: BP 105/59
[2017-12-17] VITALS (7 sets, daily range): BP systolic 84–120; BP diastolic 50–68
[2017-12-17] MEDS: CARVEDILOL 12.5 MG TAB PO SCH ×3 (01:05→21:43)
[2017-12-17 07:07] LABS: Basophils # (auto) 0.1 uL; Basophils % (auto) 0.9 % (0.0-2.0); Eosinophils # (auto) 0.1 uL; Eosinophils % (auto) 1.1 % (0.0-7.0); Hematocrit 42.9 % (41.0-53.0); Lymphocytes # (auto) 1.6 uL; Lymphocytes % (auto) 14.4 % (10.0-50.0); Mean Corpuscular Hemoglobin 31.8 pg (28.0-32.0); Mean Corpuscular Hgb Conc. 35.1 g/dL (32.0-36.0); Mean Corpuscular Volume 90.8 fL (80.0-100.0); Monocytes # (auto) 0.7 uL; Monocytes % (auto) 6.7 % (0.0-12.0); Neutrophils # (auto) 8.5 uL; Neutrophils % (auto) 76.9 % (37.0-80.0); Nucleated Red Blood Cells % 0.1 %; Platelet Count (auto) 296 10^3/uL (140-450); Red Blood Cells 4.73 10^6/uL (4.5-5.90); Red Cell Distribution Width 13.8 % (11.8-14.3)
[2017-12-17 07:30] LABS: BUN/Creatinine Ratio 30.3; Calcium 9.3 mg/dL (8.5-10.1); Potassium 4.2 mmol/L (3.5-5.1)
[2017-12-17] MEDS: Ensure Enlive Chocolate 8oz Bottle PO SCH ×3 (08:31→17:45)
[2017-12-17] MEDS: ASPirin 81 mg TAB PO SCH (09:40)
[2017-12-17] MEDS: FLUCONAZOLE 200MG/100ML 100 ML IV SCH (09:40)
[2017-12-17] MEDS: PANTOPRAZOLE 40 MG TAB PO SCH (09:40)
[2017-12-17] MEDS: APIXABAN 5 MG TAB PO SCH ×2 (09:41→21:37)
[2017-12-17] MEDS: LISINOPRIL 10 MG TAB PO SCH (09:41)
[2017-12-17] MEDS: FUROSEMIDE 20 MG TAB PO SCH (09:41)
[2017-12-17] MEDS: SPIRONOLACTONE 25 MG TAB PO SCH (09:41)
[2017-12-17] MEDS: POTASSIUM CHL 20 Meq TABLET PO SCH (09:41)
[2017-12-17] MEDS: DOCUSATE SOD 100 MG CAP PO SCH ×2 (09:41→21:37)
[2017-12-17] MEDS ORDERED: MAGNESIUM SULFATE 1GM/100ML 100 ML IV ONE (09:45)
[2017-12-17 10:05] LABS: Magnesium 2.5 mg/dL (1.6-2.6)
[2017-12-17] MEDS ORDERED: SODIUM CHLORIDE 0.9% 1,000 ML IV ONE (18:45)
[2017-12-17] MEDS: ATORVASTATIN 20 MG TAB PO SCH (21:37)
[2017-12-18] VITALS (7 sets, daily range): BP systolic 100–119; BP diastolic 58–76
[2017-12-18] MEDS ORDERED: SODIUM BICARBONATE 8.4% INJ 50ML SYRINGE ONE (01:04)
[2017-12-18 06:33] LABS: Basophils # (auto) 0 uL; Basophils % (auto) 0.4 % (0.0-2.0); Eosinophils # (auto) 0.2 uL; Eosinophils % (auto) 1.4 % (0.0-7.0); Hematocrit 41.9 % (41.0-53.0); Hemoglobin 14.8 g/dL (13.5-17.5); Lymphocytes # (auto) 1.8 uL; Lymphocytes % (auto) 16.2 % (10.0-50.0); Mean Corpuscular Hemoglobin 32.1 pg (28.0-32.0); Mean Corpuscular Hgb Conc. 35.3 g/dL (32.0-36.0); Monocytes % (auto) 9.1 % (0.0-12.0); Neutrophils # (auto) 8.2 uL; Neutrophils % (auto) 72.9 % (37.0-80.0); Platelet Count (auto) 311 10^3/uL (140-450); Red Cell Distribution Width 13.7 % (11.8-14.3); White Blood Cell 11.2 10^3/uL (4.4-10.8)
[2017-12-18 06:47] LABS: BUN/Creatinine Ratio 22.4; Calcium 8.6 mg/dL (8.5-10.1); Potassium 4.4 mmol/L (3.5-5.1)
[2017-12-18] MEDS: Ensure Enlive Chocolate 8oz Bottle PO SCH ×3 (08:00→18:00)
[2017-12-18] MEDS ORDERED: ADENOSINE 63 MG in GIVE UN-DILUTED 0 ML IV STA (08:10)
[2017-12-18] MEDS: APIXABAN 5 MG TAB PO SCH ×2 (11:46→21:21)
[2017-12-18] MEDS: FUROSEMIDE 20 MG TAB PO SCH (11:47)
[2017-12-18] MEDS: SPIRONOLACTONE 25 MG TAB PO SCH (11:48)
[2017-12-18] MEDS: POTASSIUM CHL 20 Meq TABLET PO SCH (11:48)
[2017-12-18] MEDS: ASPirin 81 mg TAB PO SCH (11:49)
[2017-12-18] MEDS: DOCUSATE SOD 100 MG CAP PO SCH ×2 (11:49→21:21)
[2017-12-18] MEDS: LISINOPRIL 10 MG TAB PO SCH (11:50)
[2017-12-18] MEDS: PANTOPRAZOLE 40 MG TAB PO SCH (11:50)
[2017-12-18] MEDS: FLUCONAZOLE 200MG/100ML 100 ML IV SCH (11:52)
[2017-12-18] MEDS ORDERED: TEMAZEPAM 15 MG CAP PO PRN (12:00)
[2017-12-18] MEDS ORDERED: LORazepam 0.5 MG TAB PO PRN (12:00)
[2017-12-18] MEDS: CARVEDILOL 12.5 MG TAB PO SCH ×2 (13:08→23:31)
[2017-12-18] MEDS: ATORVASTATIN 20 MG TAB PO SCH (21:21)
[2017-12-19 04:37] VITALS: BP 101/74
[2017-12-19 08:00] VITALS: BP 106/68
[2017-12-19] MEDS: Ensure Enlive Chocolate 8oz Bottle PO SCH ×3 (08:00→18:00)
[2017-12-19 09:00] VITALS: BP 114/74
[2017-12-19] MEDS: PANTOPRAZOLE 40 MG TAB PO SCH (10:00)
[2017-12-19] MEDS: DOCUSATE SOD 100 MG CAP PO SCH (10:00)
[2017-12-19] MEDS: APIXABAN 5 MG TAB PO SCH (10:00)
[2017-12-19] MEDS: SPIRONOLACTONE 25 MG TAB PO SCH (10:00)
[2017-12-19] MEDS: FLUCONAZOLE 100 MG TAB PO SCH (10:01)
[2017-12-19] MEDS: LISINOPRIL 10 MG TAB PO SCH (10:02)
[2017-12-19] MEDS ORDERED: IODIXANOL 320MG/ML 100ML BTL IV ONE (10:47)
[2017-12-19] MEDS ORDERED: LIDOCAINE 2%HCL (LOCAL ANESTH.) INJ 10ml MDV ONE (10:47)
[2017-12-19] MEDS ORDERED: MIDAZOLAM HCL 1MG/1ML-2 ML VIAL ONE (11:18)
[2017-12-19] MEDS ORDERED: SODIUM CHL 0.9% 0 ML ONE (11:18)
[2017-12-19] MEDS ORDERED: fentaNYL CITRATE 100 MCG/2 ML VL ONE (11:18)
[2017-12-19] MEDS ORDERED: ANGIOMAX 250 MG VIAL IV ONE (11:18)
[2017-12-19] MEDS ORDERED: VERAPAMIL 2.5MG/ML INJ 2ML VIAL IV ONE (11:39)
[2017-12-19 11:56] VITALS: BP 120/72
[2017-12-19 17:00] VITALS: BP 104/71
[2017-12-19] MEDS: CARVEDILOL 12.5 MG TAB PO SCH (17:33)
[2017-12-19 22:05] VITALS: BP 107/63
[2017-12-20] MEDS: ENOXAPARIN SOD 80 MG/0.8ML SYRINGE SC SCH ×3 (00:12→22:00)
[2017-12-20] MEDS: ATORVASTATIN 20 MG TAB PO SCH ×2 (00:18→22:19)
[2017-12-20] MEDS: DOCUSATE SOD 100 MG CAP PO SCH ×3 (00:18→22:19)
[2017-12-20] MEDS: CARVEDILOL 12.5 MG TAB PO SCH (00:22)
[2017-12-20 04:57] VITALS: BP 116/65
[2017-12-20 06:37] LABS: Basophils # (auto) 0.1 uL; Basophils % (auto) 0.6 % (0.0-2.0); Eosinophils # (auto) 0.1 uL; Hematocrit 44.5 % (41.0-53.0); Hemoglobin 15.7 g/dL (13.5-17.5); Lymphocytes # (auto) 2.2 uL; Lymphocytes % (auto) 18.4 % (10.0-50.0); Mean Corpuscular Hemoglobin 32.7 pg (28.0-32.0); Mean Corpuscular Hgb Conc. 35.3 g/dL (32.0-36.0); Mean Corpuscular Volume 92.6 fL (80.0-100.0); Monocytes # (auto) 0.8 uL; Monocytes % (auto) 7.1 % (0.0-12.0); Neutrophils # (auto) 8.7 uL; Neutrophils % (auto) 72.9 % (37.0-80.0); Nucleated Red Blood Cells % 0.1 %; Platelet Count (auto) 309 10^3/uL (140-450); Red Blood Cells 4.81 10^6/uL (4.5-5.90); Red Cell Distribution Width 13.4 % (11.8-14.3)
[2017-12-20 06:50] LABS: Potassium 4.8 mmol/L (3.5-5.1)
[2017-12-20 06:55] LABS: BUN/Creatinine Ratio 22.7
[2017-12-20] MEDS: Ensure Enlive Chocolate 8oz Bottle PO SCH ×3 (08:00→18:00)
[2017-12-20 09:00] VITALS: BP 129/67
[2017-12-20] MEDS: PANTOPRAZOLE 40 MG TAB PO SCH (09:57)
[2017-12-20] MEDS: SPIRONOLACTONE 25 MG TAB PO SCH (09:57)
[2017-12-20] MEDS: FLUCONAZOLE 100 MG TAB PO SCH (09:57)
[2017-12-20] MEDS: LISINOPRIL 10 MG TAB PO SCH (09:58)
[2017-12-20 17:56] VITALS: BP 101/74
[2017-12-21] MEDS: CARVEDILOL 12.5 MG TAB PO SCH ×3 (00:12→10:15)
[2017-12-21] MEDS ORDERED: ENOXAPARIN SOD 80 MG/0.8ML SYRINGE SC ONE (00:28)
[2017-12-21] MEDS: ENOXAPARIN SOD 80 MG/0.8ML SYRINGE SC SCH (00:32)
[2017-12-21 04:49] VITALS: BP 122/70
[2017-12-21] MEDS: Ensure Enlive Chocolate 8oz Bottle PO SCH ×3 (08:00→18:00)
[2017-12-21 08:57] LABS: INR 1.04 (0.9-1.15); Prothrombin Time 11.1 sec (9.27-12.13)
[2017-12-21 09:00] VITALS: BP 122/77
[2017-12-21] MEDS: DOCUSATE SOD 100 MG CAP PO SCH ×2 (10:14→21:41)
[2017-12-21] MEDS: FLUCONAZOLE 100 MG TAB PO SCH (10:14)
[2017-12-21] MEDS: LISINOPRIL 10 MG TAB PO SCH (10:15)
[2017-12-21] MEDS: SPIRONOLACTONE 25 MG TAB PO SCH (10:15)
[2017-12-21] MEDS: PANTOPRAZOLE 40 MG TAB PO SCH (10:15)
[2017-12-21 13:00] VITALS: BP 110/76
[2017-12-21 17:15] VITALS: BP 102/60
[2017-12-21] MEDS: ATORVASTATIN 20 MG TAB PO SCH (21:41)
[2017-12-21 22:00] VITALS: BP 116/68
[2017-12-22] VITALS (10 sets, daily range): BP systolic 91–127; BP diastolic 52–91
[2017-12-22] MEDS: CARVEDILOL 12.5 MG TAB PO SCH ×2 (00:38→15:20)
[2017-12-22] MEDS: Ensure Enlive Chocolate 8oz Bottle PO SCH ×3 (08:00→18:00)
[2017-12-22] MEDS: FLUCONAZOLE 100 MG TAB PO SCH (09:35)
[2017-12-22] MEDS: SPIRONOLACTONE 25 MG TAB PO SCH (09:35)
[2017-12-22] MEDS: PANTOPRAZOLE 40 MG TAB PO SCH (09:35)
[2017-12-22] MEDS: LISINOPRIL 10 MG TAB PO SCH (09:36)
[2017-12-22] MEDS ORDERED: LIDOCAINE 2%HCL (LOCAL ANESTH.) INJ 10ml MDV ONE (09:38)
[2017-12-22] MEDS ORDERED: IOHEXOL 350 MG/ML 100ML IJ ONE ×4 (09:38→13:06)
[2017-12-22] MEDS: DOCUSATE SOD 100 MG CAP PO SCH ×2 (09:39→21:07)
[2017-12-22] MEDS ORDERED: ANGIOMAX 250 MG VIAL IV ONE (09:59)
[2017-12-22] MEDS ORDERED: fentaNYL CITRATE 100 MCG/2 ML VL ONE ×2 (10:00→11:25)
[2017-12-22] MEDS ORDERED: MIDAZOLAM HCL 1MG/1ML-2 ML VIAL ONE ×3 (10:00→11:25)
[2017-12-22] MEDS ORDERED: SODIUM CHL 0.9% 0 ML ONE (10:00)
[2017-12-22] MEDS ORDERED: ENOXAPARIN SOD 80 MG/0.8ML SYRINGE SC SCH (10:00)
[2017-12-22] MEDS ORDERED: LIDOCAINE 2%HCL (LOCAL ANESTH.) INJ 20ML MDV ONE (10:17)
[2017-12-22] MEDS ORDERED: HEPARIN SODIUM (PORCINE) 5000 UNITS/ML 1ML VIAL ONE ×3 (10:34→11:32)
[2017-12-22] MEDS ORDERED: hydrALAZINE HCL 20 MG/ML VL ONE (13:19)
[2017-12-22] MEDS ORDERED: CLOPIDOGREL 300 MG TAB ONE (13:26)
[2017-12-22] MEDS ORDERED: ASPirin 325 MG TAB ONE (13:26)
[2017-12-22] MEDS ORDERED: MORPHINE SULF INJ 2 MG/ML SYRINGE 1ML ONE (15:17)
[2017-12-22] MEDS: MORPHINE SULFATE 4 MG/ML SYR/VIAL IV PRN ×2 (15:23→21:07)
[2017-12-22] MEDS ORDERED: AMIODARONE HCL 150 MG in D5W 5% 100 ML IV ONE (17:00)
[2017-12-22] MEDS ORDERED: AMIODARONE HCL 900 MG in DEXTROSE 500 ML IV SCH ×2 (17:05→23:05)
[2017-12-22] MEDS: ATORVASTATIN 20 MG TAB PO SCH (21:07)
[2017-12-23] VITALS (23 sets, daily range): BP systolic 97–142; BP diastolic 40–76
[2017-12-23] MEDS: CARVEDILOL 12.5 MG TAB PO SCH ×2 (00:19→15:01)
[2017-12-23 04:25] LABS: Calcium 8.7 mg/dL (8.5-10.1); Potassium 4.2 mmol/L (3.5-5.1)
[2017-12-23] MEDS: ACETAMINOPHEN 500 MG TAB PO PRN (04:42)
[2017-12-23] MEDS: Ensure Enlive Chocolate 8oz Bottle PO SCH ×3 (08:00→18:00)
[2017-12-23] MEDS ORDERED: ASPirin 81 mg TAB PO SCH (10:00)
[2017-12-23] MEDS: LISINOPRIL 10 MG TAB PO SCH (10:00)
[2017-12-23] MEDS: PANTOPRAZOLE 40 MG TAB PO SCH (10:57)
[2017-12-23] MEDS: SPIRONOLACTONE 25 MG TAB PO SCH (10:58)
[2017-12-23] MEDS: FLUCONAZOLE 100 MG TAB PO SCH (10:59)
[2017-12-23] MEDS: CLOPIDOGREL BISULFATE 75 MG TAB PO SCH (11:00)
[2017-12-23] MEDS: DOCUSATE SOD 100 MG CAP PO SCH ×2 (11:00→20:39)
[2017-12-23 12:44] LABS: INR 1.07 (0.9-1.15); Prothrombin Time 11.4 sec (9.27-12.13)
[2017-12-23] MEDS: AMIODARONE HCL 200 MG TAB PO SCH (13:01)
[2017-12-23 13:04] LABS: Albumin 2.6 g/dL (3.4-5.0); Calcium 8.3 mg/dL (8.5-10.1); Potassium 4.1 mmol/L (3.5-5.1)
[2017-12-23 13:07] LABS: Bilirubin, Total 0.8 mg/dL (0.2-1.0); Total Protein 6.5 g/dL (6.4-8.2)
[2017-12-23 13:30] LABS: BUN/Creatinine Ratio 22.6
[2017-12-23] MEDS ORDERED: WARFARIN SODIUM 10 MG TAB PO ONE (17:00)
[2017-12-23] MEDS: ATORVASTATIN 20 MG TAB PO SCH (20:39)
[2017-12-23] MEDS: ENOXAPARIN SOD 100 MG/1 ML SYRINGE SC SCH (20:39)
[2017-12-24] MEDS: CARVEDILOL 12.5 MG TAB PO SCH ×2 (00:08→12:46)
[2017-12-24] MEDS: ACETAMINOPHEN 500 MG TAB PO PRN (02:32)
[2017-12-24 05:02] VITALS: BP 117/68
[2017-12-24 06:21] LABS: INR 1.39 (0.9-1.15); Partial Thromboplastin Time 33.9 sec (23.78-33.04); Prothrombin Time 14.6 sec (9.27-12.13)
[2017-12-24 06:28] LABS: Albumin 2.7 g/dL (3.4-5.0); Calcium 8.5 mg/dL (8.5-10.1)
[2017-12-24 06:31] LABS: BUN/Creatinine Ratio 23.5; Bilirubin, Total 0.6 mg/dL (0.2-1.0); Total Protein 7.1 g/dL (6.4-8.2)
[2017-12-24] MEDS: Ensure Enlive Chocolate 8oz Bottle PO SCH ×3 (08:11→18:19)
[2017-12-24 08:52] VITALS: BP 110/75
[2017-12-24] MEDS: SPIRONOLACTONE 25 MG TAB PO SCH (09:59)
[2017-12-24] MEDS: DOCUSATE SOD 100 MG CAP PO SCH ×2 (10:00→23:22)
[2017-12-24] MEDS: AMIODARONE HCL 200 MG TAB PO SCH (10:00)
[2017-12-24] MEDS ORDERED: AMIODARONE HCL 200 MG TAB PO SCH (10:00)
[2017-12-24] MEDS: CLOPIDOGREL BISULFATE 75 MG TAB PO SCH (10:00)
[2017-12-24] MEDS: PANTOPRAZOLE 40 MG TAB PO SCH (10:01)
[2017-12-24] MEDS: ENOXAPARIN SOD 100 MG/1 ML SYRINGE SC SCH ×2 (10:01→23:22)
[2017-12-24] MEDS: LISINOPRIL 10 MG TAB PO SCH (10:01)
[2017-12-24] MEDS ORDERED: LACTULOSE 20Gm/30ML SOLN PO ONE (12:45)
[2017-12-24 12:56] VITALS: BP 116/65
[2017-12-24 17:00] VITALS: BP 101/52
[2017-12-24] MEDS ORDERED: WARFARIN SODIUM 5 MG TAB PO ONE (17:00)
[2017-12-24 22:07] VITALS: BP 108/56
[2017-12-24] MEDS: ATORVASTATIN 20 MG TAB PO SCH (23:22)
[2017-12-25] MEDS: CARVEDILOL 12.5 MG TAB PO SCH ×2 (00:45→12:51)
[2017-12-25 05:03] VITALS: BP 123/65
[2017-12-25 05:21] LABS: Basophils # (auto) 0 uL; Basophils % (auto) 0.2 % (0.0-2.0); Eosinophils # (auto) 0.1 uL; Eosinophils % (auto) 0.9 % (0.0-7.0); Hematocrit 38.2 % (41.0-53.0); Hemoglobin 13.5 g/dL (13.5-17.5); Lymphocytes # (auto) 2.4 uL; Lymphocytes % (auto) 15.4 % (10.0-50.0); Mean Corpuscular Hemoglobin 32.1 pg (28.0-32.0); Mean Corpuscular Hgb Conc. 35.4 g/dL (32.0-36.0); Mean Corpuscular Volume 90.5 fL (80.0-100.0); Monocytes # (auto) 0.9 uL; Neutrophils # (auto) 12.2 uL; Neutrophils % (auto) 77.5 % (37.0-80.0); Platelet Count (auto) 323 10^3/uL (140-450); Red Blood Cells 4.22 10^6/uL (4.5-5.90); Red Cell Distribution Width 13.4 % (11.8-14.3); White Blood Cell 15.7 10^3/uL (4.4-10.8)
[2017-12-25 05:29] LABS: INR 2.58 (0.9-1.15); Partial Thromboplastin Time 40.1 sec (23.78-33.04); Prothrombin Time 26.2 sec (9.27-12.13)
[2017-12-25] MEDS: Ensure Enlive Chocolate 8oz Bottle PO SCH ×3 (08:02→17:58)
[2017-12-25] MEDS: MORPHINE SULFATE 4 MG/ML SYR/VIAL IV PRN (08:02)
[2017-12-25 09:08] VITALS: BP 125/69
[2017-12-25] MEDS: PANTOPRAZOLE 40 MG TAB PO SCH (09:41)
[2017-12-25] MEDS: DOCUSATE SOD 100 MG CAP PO SCH ×2 (09:42→22:17)
[2017-12-25] MEDS: CLOPIDOGREL BISULFATE 75 MG TAB PO SCH (09:42)
[2017-12-25] MEDS: AMIODARONE HCL 200 MG TAB PO SCH (09:42)
[2017-12-25] MEDS: SPIRONOLACTONE 25 MG TAB PO SCH (09:43)
[2017-12-25] MEDS: LISINOPRIL 10 MG TAB PO SCH (09:43)
[2017-12-25] MEDS ORDERED: LORazepam 0.5 MG TAB PO PRN (09:45)
[2017-12-25] MEDS ORDERED: TEMAZEPAM 15 MG CAP PO PRN (09:45)
[2017-12-25] MEDS ORDERED: MAGNESIUM CITRATE SOLUTION 300 ML BTL PO ONE (09:45)
[2017-12-25 13:31] VITALS: BP 101/61
[2017-12-25 16:57] VITALS: BP 120/67
[2017-12-25 21:39] VITALS: BP 102/56
[2017-12-25] MEDS: ATORVASTATIN 20 MG TAB PO SCH (22:17)
[2017-12-26] MEDS: CARVEDILOL 12.5 MG TAB PO SCH ×2 (00:14→12:45)
[2017-12-26 04:49] VITALS: BP 95/56
[2017-12-26 06:05] LABS: Basophils # (auto) 0.1 uL; Basophils % (auto) 0.7 % (0.0-2.0); Eosinophils # (auto) 0.2 uL; Eosinophils % (auto) 1.8 % (0.0-7.0); Hematocrit 36.9 % (41.0-53.0); Hemoglobin 12.9 g/dL (13.5-17.5); Lymphocytes # (auto) 2.5 uL; Lymphocytes % (auto) 19.8 % (10.0-50.0); Mean Corpuscular Hemoglobin 31.8 pg (28.0-32.0); Mean Corpuscular Volume 90.8 fL (80.0-100.0); Monocytes # (auto) 0.8 uL; Monocytes % (auto) 6.5 % (0.0-12.0); Neutrophils # (auto) 8.9 uL; Neutrophils % (auto) 71.2 % (37.0-80.0); Nucleated Red Blood Cells % 0.1 %; Platelet Count (auto) 343 10^3/uL (140-450); Red Blood Cells 4.07 10^6/uL (4.5-5.90); Red Cell Distribution Width 13.4 % (11.8-14.3); White Blood Cell 12.5 10^3/uL (4.4-10.8)
[2017-12-26 06:18] LABS: INR 2.34 (0.9-1.15); Partial Thromboplastin Time 35.2 sec (23.78-33.04); Prothrombin Time 23.9 sec (9.27-12.13)
[2017-12-26 06:38] LABS: Potassium 4.1 mmol/L (3.5-5.1)
[2017-12-26 06:43] LABS: BUN/Creatinine Ratio 26.7; Calcium 8.5 mg/dL (8.5-10.1)
[2017-12-26 09:14] VITALS: BP 104/72
[2017-12-26] MEDS ORDERED: WARF2TAB55 PO (09:55)
[2017-12-26] MEDS ORDERED: LISI10TA6 PO (09:55)
[2017-12-26] MEDS ORDERED: CLOP75TA28 PO (09:55)
[2017-12-26] MEDS ORDERED: AMI200T PO (09:55)
[2017-12-26] MEDS ORDERED: CAR125T PO (09:55)
[2017-12-26] MEDS ORDERED: SPIR25TA88 PO (09:55)
[2017-12-26] MEDS: LISINOPRIL 10 MG TAB PO SCH (10:00)
[2017-12-26] MEDS: Ensure Enlive Chocolate 8oz Bottle PO SCH ×3 (10:11→18:27)
[2017-12-26] MEDS: AMIODARONE HCL 200 MG TAB PO SCH (10:19)
[2017-12-26] MEDS: CLOPIDOGREL BISULFATE 75 MG TAB PO SCH (10:19)
[2017-12-26] MEDS: SPIRONOLACTONE 25 MG TAB PO SCH (10:20)
[2017-12-26] MEDS: DOCUSATE SOD 100 MG CAP PO SCH ×2 (10:20→21:03)
[2017-12-26] MEDS: PANTOPRAZOLE 40 MG TAB PO SCH (10:20)
[2017-12-26 13:00] VITALS: BP 119/65
[2017-12-26] MEDS ORDERED: WARFARIN SODIUM 2 MG TAB PO ONE (17:00)
[2017-12-26 17:16] VITALS: BP 124/66
[2017-12-26] MEDS: ATORVASTATIN 20 MG TAB PO SCH (21:02)
[2017-12-26 22:00] VITALS: BP 108/75
[2017-12-27] MEDS: CARVEDILOL 12.5 MG TAB PO SCH ×2 (00:07→12:45)
[2017-12-27 05:13] VITALS: BP 119/76
[2017-12-27 05:46] LABS: Basophils # (auto) 0.1 uL; Basophils % (auto) 1.1 % (0.0-2.0); Eosinophils # (auto) 0.3 uL; Eosinophils % (auto) 2.7 % (0.0-7.0); Hematocrit 39.9 % (41.0-53.0); Hemoglobin 13.8 g/dL (13.5-17.5); Lymphocytes # (auto) 2.6 uL; Lymphocytes % (auto) 23.1 % (10.0-50.0); Mean Corpuscular Hemoglobin 31.5 pg (28.0-32.0); Mean Corpuscular Hgb Conc. 34.5 g/dL (32.0-36.0); Mean Corpuscular Volume 91.2 fL (80.0-100.0); Monocytes # (auto) 0.7 uL; Monocytes % (auto) 6.1 % (0.0-12.0); Neutrophils # (auto) 7.5 uL; Platelet Count (auto) 400 10^3/uL (140-450); Red Blood Cells 4.37 10^6/uL (4.5-5.90); White Blood Cell 11.2 10^3/uL (4.4-10.8)
[2017-12-27 05:56] LABS: INR 2.38 (0.9-1.15); Prothrombin Time 24.2 sec (9.27-12.13)
[2017-12-27 08:55] VITALS: BP 120/71
[2017-12-27] MEDS: PANTOPRAZOLE 40 MG TAB PO SCH (09:04)
[2017-12-27] MEDS: CLOPIDOGREL BISULFATE 75 MG TAB PO SCH (09:04)
[2017-12-27] MEDS: DOCUSATE SOD 100 MG CAP PO SCH (09:04)
[2017-12-27] MEDS: Ensure Enlive Chocolate 8oz Bottle PO SCH ×2 (09:06→14:55)
[2017-12-27] MEDS: SPIRONOLACTONE 25 MG TAB PO SCH (09:09)
[2017-12-27] MEDS: AMIODARONE HCL 200 MG TAB PO SCH (09:11)
[2017-12-27] MEDS: LISINOPRIL 10 MG TAB PO SCH (09:11)
[2017-12-27 11:45] VITALS: BP 117/65
[2017-12-27 13:18] VITALS: BP 117/65
[2017-12-27] MEDS ORDERED: WARFARIN SODIUM 2 MG TAB PO ONE (17:00)
== END 2017-12-27 13:06 | disposition home or self-care (01) | DRG 215 ==
LOC: EDBD 11:21 → ER 11:21 → TELE 11:22 → TELE-EAST 12-05 15:52 → ICU WEST 12-22 14:27 → WEST WING 12-23 21:27 → TELE-WESTW 12-23 21:30
PROVIDERS: ADMIT Internal Medicine; ATTEND Internal Medicine
PROC: 4A023N7 Measurement of Cardiac Sampling and Pressure, Left Heart, Percutaneous Approach (ICD-10-PCS; principal; 2017-12-19)
PROC: 02703ZZ Dilation of Coronary Artery, One Artery, Percutaneous Approach (ICD-10-PCS; 2017-12-19)
PROC: B2111ZZ Fluoroscopy of Multiple Coronary Arteries using Low Osmolar Contrast (ICD-10-PCS; 2017-12-19)
PROC: B2151ZZ Fluoroscopy of Left Heart using Low Osmolar Contrast (ICD-10-PCS; 2017-12-19)
PROC: 5A0221D Assistance with Cardiac Output using Impeller Pump, Continuous (ICD-10-PCS; 2017-12-22)
PROC: 027034Z Dilation of Coronary Artery, One Artery with Drug-eluting Intraluminal Device, Percutaneous Approach (ICD-10-PCS; 2017-12-22)
PROC: 047L3ZZ Dilation of Left Femoral Artery, Percutaneous Approach (ICD-10-PCS; 2017-12-22)
PROC: 047D3ZZ Dilation of Left Common Iliac Artery, Percutaneous Approach (ICD-10-PCS; 2017-12-22)
PROC: 5A02210 Assistance with Cardiac Output using Balloon Pump, Continuous (ICD-10-PCS; 2017-12-22)
PROC: 02HA3RZ Insertion of Short-term External Heart Assist System into Heart, Percutaneous Approach (ICD-10-PCS; 2017-12-22)
PROC: 4A023N7 Measurement of Cardiac Sampling and Pressure, Left Heart, Percutaneous Approach (ICD-10-PCS; 2017-12-22)
PROC: B2111ZZ Fluoroscopy of Multiple Coronary Arteries using Low Osmolar Contrast (ICD-10-PCS; 2017-12-22)
PROC: B2151ZZ Fluoroscopy of Left Heart using Low Osmolar Contrast (ICD-10-PCS; 2017-12-22)
DX: I25.10 Atherosclerotic heart disease of native coronary artery without angina pectoris (principal); I50.43 Acute on chronic combined systolic (congestive) and diastolic (congestive) heart failure; I63.40 Cerebral infarction due to embolism of unspecified cerebral artery; I48.1 Persistent atrial fibrillation; I47.2 Ventricular tachycardia; D68.59 Other primary thrombophilia; G81.91 Hemiplegia, unspecified affecting right dominant side; I25.5 Ischemic cardiomyopathy; I16.0 Hypertensive urgency; I11.0 Hypertensive heart disease with heart failure; E78.5 Hyperlipidemia, unspecified; I25.82 Chronic total occlusion of coronary artery; I67.2 Cerebral atherosclerosis; J44.9 Chronic obstructive pulmonary disease, unspecified; B37.9 Candidiasis, unspecified; E66.3 Overweight; Z83.3 Family history of diabetes mellitus; Z80.1 Family history of malignant neoplasm of trachea, bronchus and lung; I25.2 Old myocardial infarction; Z91.19 Patient's noncompliance with other medical treatment and regimen
CPT/HCPCS: 33967; 33990; 36415; 37221; 37226; 70450; 70551; 71045; 78452; 80048; 80053; 80061; 80307; 81001; 82550; 82962; 83036; 83735; 83880; 84443; 84484; 85025; 85610; 85652; 85730; 86850; 86900; 86901; 92920; 92928; 93005; 93017; 93306; 93458; 93886; 96374; 97110; 97116; 97163; 97530; 99152; A6257; C1874; C1876; C1887; G0378; J0153; J1450; J2001; J2250; J7060; Q9967

== ENCOUNTER → 2018-04-06 | Outpatient (CLI) | payer MEDICARE, MEDICAID ==
[~2018-04-06] MED LIST changes: +AMI200T PO; -APIX5TAB PO; -ASPI81TA27 PO; -ATOR20TA50 PO; +CLOP75TA28 PO; +LISI10TA6 PO; -LOSA-46 PO; +SPIR25TA88 PO; +WARF2TAB55 PO
[2018-04-06 09:24] LABS: Basophils # (auto) 0.1 uL; Basophils % (auto) 0.7 % (0.0-2.0); Eosinophils # (auto) 0.1 uL; Eosinophils % (auto) 1.4 % (0.0-7.0); Hemoglobin 15.2 g/dL (13.5-17.5); Lymphocytes # (auto) 2.1 uL; Mean Corpuscular Hemoglobin 32.7 pg (28.0-32.0); Mean Corpuscular Hgb Conc. 35.3 g/dL (32.0-36.0); Mean Corpuscular Volume 92.5 fL (80.0-100.0); Monocytes # (auto) 0.6 uL; Monocytes % (auto) 6.4 % (0.0-12.0); Neutrophils # (auto) 6.3 uL; Neutrophils % (auto) 68.5 % (37.0-80.0); Platelet Count (auto) 267 10^3/uL (140-450); Red Blood Cells 4.65 10^6/uL (4.5-5.90); Red Cell Distribution Width 13.7 % (11.8-14.3); White Blood Cell 9.1 10^3/uL (4.4-10.8)
[2018-04-06 09:25] LABS: Urine Bacteria NONE SEEN /hpf (None Seen); Urine Blood Negative /uL (Negative); Urine Mucus FEW (None Seen); Urine Specific Gravity 1.015 (1.001-1.035); Urine WBC <1 /hpf (0 - 3)
[2018-04-06 10:54] LABS: Albumin 3.9 g/dL (3.4-5.0); Calcium 9.3 mg/dL (8.5-10.1); Potassium 4.8 mmol/L (3.5-5.1)
[2018-04-06 10:58] LABS: BUN/Creatinine Ratio 17.5; Bilirubin, Total 0.8 mg/dL (0.2-1.0); CRP High Sensitivity 0.27 mg/dL (< 0.3); Total Protein 7.9 g/dL (6.4-8.2)
[2018-04-06 15:12] LABS: Free T4 (Free Thyroxine) 1.43 ng/dL (0.89-1.76)
[2018-04-06 15:13] LABS: Free T3 2.37 pg/mL (2.3-4.2); Prostate Specific Antigen 1.15 ng/mL (0.0-4.0)
== END | disposition home or self-care (01) ==
LOC: LAB 09:00
PROVIDERS: ATTEND Internal Medicine
DX: I48.91 Unspecified atrial fibrillation (principal); Z79.01 Long term (current) use of anticoagulants; I10 Essential (primary) hypertension; Z79.899 Other long term (current) drug therapy
CPT/HCPCS: 36415; 80053; 80061; 81001; 82306; 82607; 83036; 84153; 84403; 84439; 84443; 84481; 85025; 86141

== ENCOUNTER → 2018-05-19 | Outpatient (CLI) | payer MEDICARE, OTHER | END | disposition home or self-care (01) | LOC: XYW 07:45 | PROVIDERS: ATTEND Internal Medicine | DX: I77.1 Stricture of artery (principal); I10 Essential (primary) hypertension; E78.5 Hyperlipidemia, unspecified | CPT/HCPCS: 78452; 93926; A9500 ==

== ENCOUNTER → 2018-05-21 | Outpatient (CLI) | payer MEDICARE, OTHER ==
[~2018-05-21] VITALS: Ht 172.7 cm; Wt 79.4 kg
[~2018-05-21] MED LIST changes: +ADENOSINE 67 MG in GIVE UN-DILUTED 0 ML IV STA
[2018-05-21 11:30] VITALS: BP 112/57
== END | disposition home or self-care (01) ==
LOC: XYW 10:34
PROVIDERS: ATTEND Internal Medicine
DX: I07.1 Rheumatic tricuspid insufficiency (principal); I11.0 Hypertensive heart disease with heart failure; I50.42 Chronic combined systolic (congestive) and diastolic (congestive) heart failure; E78.5 Hyperlipidemia, unspecified; I73.9 Peripheral vascular disease, unspecified
CPT/HCPCS: 93017; 93306; J0153

== ENCOUNTER → 2018-06-08 | Outpatient (CLI) | payer MEDICARE, OTHER ==
[~2018-06-08] MED LIST changes: -ADENOSINE 67 MG in GIVE UN-DILUTED 0 ML IV STA
[2018-06-08 13:26] LABS: Cholesterol 109 mg/dL (< 200); HDL Cholesterol 35 mg/dL (40-59); LDL Cholesterol 67 mg/dL (< 100); Triglycerides 82 mg/dL (< 150)
== END | disposition home or self-care (01) ==
LOC: LAB 10:41
PROVIDERS: ATTEND Internal Medicine
DX: Z12.11 Encounter for screening for malignant neoplasm of colon (principal); E11.9 Type 2 diabetes mellitus without complications; I10 Essential (primary) hypertension; E55.9 Vitamin D deficiency, unspecified
CPT/HCPCS: 36415; 80061; 82043; 82306; 83036

== ENCOUNTER → 2018-06-12 | Outpatient (CLI) | payer MEDICARE, OTHER | END | disposition home or self-care (01) | LOC: LAB 16:05 | PROVIDERS: ATTEND Internal Medicine | DX: Z12.11 Encounter for screening for malignant neoplasm of colon (principal); E11.9 Type 2 diabetes mellitus without complications; I11.0 Hypertensive heart disease with heart failure; I50.42 Chronic combined systolic (congestive) and diastolic (congestive) heart failure | CPT/HCPCS: 82270 ==

== ENCOUNTER → 2018-09-23 | Outpatient (CLI) | payer MEDICARE, OTHER ==
[~2018-09-23] MED LIST changes: -AMI200T PO; +AMIO200T4 PO; +WARF2TAB PO; -WARF2TAB55 PO
[2018-09-23 14:06] LABS: Basophils # (auto) 0.1 uL; Eosinophils # (auto) 0.2 uL; Eosinophils % (auto) 1.9 % (0.0-7.0); Hematocrit 35.8 % (41.0-53.0); Hemoglobin 12.3 g/dL (13.5-17.5); Lymphocytes # (auto) 2.5 uL; Lymphocytes % (auto) 30.5 % (10.0-50.0); Mean Corpuscular Hemoglobin 33.2 pg (28.0-32.0); Mean Corpuscular Hgb Conc. 34.2 g/dL (32.0-36.0); Mean Corpuscular Volume 97.1 fL (80.0-100.0); Monocytes # (auto) 0.5 uL; Monocytes % (auto) 6.3 % (0.0-12.0); Neutrophils % (auto) 60.3 % (37.0-80.0); Platelet Count (auto) 251 10^3/uL (140-450); Red Blood Cells 3.69 10^6/uL (4.5-5.90); Red Cell Distribution Width 14.1 % (11.8-14.3); White Blood Cell 8.3 10^3/uL (4.4-10.8)
[2018-09-23 14:31] LABS: Urine Blood Negative /uL (Negative)
[2018-09-23 14:32] LABS: INR 1.96 (0.9-1.15); Partial Thromboplastin Time 36.5 sec (23.64-32.05)
[2018-09-23 14:34] LABS: Albumin 3.9 g/dL (3.4-5.0); BUN/Creatinine Ratio 21.5; Calcium 8.6 mg/dL (8.5-10.1); Potassium 4.6 mmol/L (3.5-5.1)
[2018-09-23 14:37] LABS: Bilirubin, Total 0.5 mg/dL (0.2-1.0); Total Protein 7.2 g/dL (6.4-8.2)
== END | disposition home or self-care (01) ==
LOC: LAB 13:44
PROVIDERS: ATTEND Specialist
DX: Z01.82 Encounter for allergy testing (principal); H25.12 Age-related nuclear cataract, left eye; Z79.01 Long term (current) use of anticoagulants
CPT/HCPCS: 36415; 80053; 81003; 85025; 85610; 85730

== ENCOUNTER 2018-12-01 16:54 | Emergency (ER) | payer MEDICARE, OTHER ==
[~2018-12-01] VITALS: Ht 175.3 cm; Wt 74.8 kg
[2018-12-01 18:16] LABS: Basophils # (auto) 0.1 uL; Basophils % (auto) 0.8 % (0.0-2.0); Eosinophils # (auto) 0.1 uL; Eosinophils % (auto) 1.8 % (0.0-7.0); Hemoglobin 13.4 g/dL (13.5-17.5); Lymphocytes # (auto) 2.2 uL; Lymphocytes % (auto) 28.1 % (10.0-50.0); Mean Corpuscular Hemoglobin 32.3 pg (28.0-32.0); Mean Corpuscular Hgb Conc. 33.5 g/dL (32.0-36.0); Mean Corpuscular Volume 96.5 fL (80.0-100.0); Monocytes # (auto) 0.6 uL; Monocytes % (auto) 7.8 % (0.0-12.0); Neutrophils # (auto) 4.8 uL; Neutrophils % (auto) 61.5 % (37.0-80.0); Platelet Count (auto) 272 10^3/uL (140-450); Red Blood Cells 4.14 10^6/uL (4.5-5.90); Red Cell Distribution Width 13.6 % (11.8-14.3); White Blood Cell 7.8 10^3/uL (4.4-10.8)
[2018-12-01 18:31] LABS: Albumin 3.9 g/dL (3.4-5.0); BUN/Creatinine Ratio 16.7; Calcium 8.6 mg/dL (8.5-10.1); Potassium 4.5 mmol/L (3.5-5.1)
[2018-12-01 18:41] LABS: Bilirubin, Total 0.4 mg/dL (0.2-1.0); Total Protein 7.2 g/dL (6.4-8.2)
[2018-12-01 21:02] LABS: Magnesium 2.1 mg/dL (1.6-2.6)
[2018-12-01 21:07] LABS: INR 2.12 (0.9-1.15); Partial Thromboplastin Time 38.5 sec (23.64-32.05)
[2018-12-01 23:21] VITALS: BP 121/60
== END 2018-12-01 23:29 | disposition home or self-care (01) ==
LOC: ER 16:54
DX: E86.0 Dehydration (principal); E11.9 Type 2 diabetes mellitus without complications; E78.5 Hyperlipidemia, unspecified; I10 Essential (primary) hypertension; I25.2 Old myocardial infarction; I48.91 Unspecified atrial fibrillation; Z88.2 Allergy status to sulfonamides; Z98.61 Coronary angioplasty status
CPT/HCPCS: 36415; 71046; 80053; 83735; 83880; 84484; 85025; 85610; 85730; 93005

== ENCOUNTER → 2018-12-01 | Outpatient (CLI) | payer MEDICARE, OTHER ==
[2018-12-01 13:46] LABS: BUN/Creatinine Ratio 19.3; Calcium 9.3 mg/dL (8.5-10.1)
[2018-12-01 13:51] LABS: Potassium 5.7 mmol/L (3.5-5.1)
== END | disposition home or self-care (01) ==
LOC: LAB 12:49
PROVIDERS: ATTEND Internal Medicine
DX: E11.9 Type 2 diabetes mellitus without complications (principal)
CPT/HCPCS: 36415; 80048; 83036

== ENCOUNTER → 2018-12-16 | Outpatient (CLI) | payer MEDICARE ==
[2018-12-16 14:09] LABS: BUN/Creatinine Ratio 15.3; Calcium 8.8 mg/dL (8.5-10.1); Potassium 4.7 mmol/L (3.5-5.1)
== END | disposition home or self-care (01) ==
LOC: LAB 13:11
PROVIDERS: ATTEND Internal Medicine
DX: E11.9 Type 2 diabetes mellitus without complications (principal)
CPT/HCPCS: 36415; 80048

== ENCOUNTER → 2019-02-01 | Outpatient (CLI) | payer MEDICARE ==
[2019-02-01 13:04] LABS: Calcium 8.3 mg/dL (8.5-10.1); Potassium 4.3 mmol/L (3.5-5.1)
== END | disposition home or self-care (01) ==
LOC: LAB 12:12
PROVIDERS: ATTEND Internal Medicine
DX: E11.9 Type 2 diabetes mellitus without complications (principal)
CPT/HCPCS: 36415; 80048

== ENCOUNTER → 2019-03-09 | Outpatient (CLI) | payer MEDICARE ==
[2019-03-09 11:45] LABS: Albumin 3.5 g/dL (3.4-5.0); Calcium 9.1 mg/dL (8.5-10.1); Potassium 4.4 mmol/L (3.5-5.1)
[2019-03-09 11:52] LABS: Bilirubin, Total 0.7 mg/dL (0.2-1.0)
== END | disposition home or self-care (01) ==
LOC: LAB 10:23
PROVIDERS: ATTEND Internal Medicine
DX: I10 Essential (primary) hypertension (principal); E11.9 Type 2 diabetes mellitus without complications
CPT/HCPCS: 36415; 80053; 80061

== ENCOUNTER 2019-03-17 11:45 | Emergency (ER) | payer MEDICARE ==
[~2019-03-17] VITALS: Ht 172.7 cm; Wt 74.8 kg
[2019-03-17 13:23] LABS: Basophils # (auto) 0 uL; Basophils % (auto) 0.9 % (0.0-2.0); Eosinophils # (auto) 0.1 uL; Eosinophils % (auto) 2.4 % (0.0-7.0); Hematocrit 39.2 % (41.0-53.0); Hemoglobin 13.6 g/dL (13.5-17.5); Lymphocytes # (auto) 1.9 uL; Lymphocytes % (auto) 39.4 % (10.0-50.0); Mean Corpuscular Hemoglobin 32.3 pg (28.0-32.0); Mean Corpuscular Hgb Conc. 34.7 g/dL (32.0-36.0); Mean Corpuscular Volume 93.1 fL (80.0-100.0); Monocytes # (auto) 0.5 uL; Monocytes % (auto) 10.7 % (0.0-12.0); Neutrophils # (auto) 2.2 uL; Neutrophils % (auto) 46.6 % (37.0-80.0); Nucleated Red Blood Cells % 0.1 %; Platelet Count (auto) 271 10^3/uL (140-450); Red Blood Cells 4.22 10^6/uL (4.5-5.90); Red Cell Distribution Width 13.4 % (11.8-14.3); White Blood Cell 4.8 10^3/uL (4.4-10.8)
[2019-03-17 13:52] LABS: Albumin 3.8 g/dL (3.4-5.0); Calcium 8.6 mg/dL (8.5-10.1); Potassium 4.6 mmol/L (3.5-5.1)
[2019-03-17 13:57] LABS: BUN/Creatinine Ratio 17.9; Bilirubin, Total 0.6 mg/dL (0.2-1.0); Total Protein 7.4 g/dL (6.4-8.2)
[2019-03-17 15:30] LABS: Amylase 72 U/L (25-115); Lipase 106 U/L (73-393)
[2019-03-17 18:55] VITALS: BP 135/69
[2019-03-18 08:46] LABS: Hepatitis B Surface Antibody Negative
[2019-03-18 09:24] LABS: Hepatitis A Total Antibody Negative
[2019-03-18 23:17] LABS: Hepatitis B Core Total AB Negative; Hepatitis C Antibody Negative (Negative)
== END 2019-03-17 18:54 | disposition home or self-care (01) ==
LOC: ER 11:45
DX: R79.89 Other specified abnormal findings of blood chemistry (principal); R10.11 Right upper quadrant pain; I48.91 Unspecified atrial fibrillation; I25.10 Atherosclerotic heart disease of native coronary artery without angina pectoris; E11.9 Type 2 diabetes mellitus without complications; E78.5 Hyperlipidemia, unspecified; I10 Essential (primary) hypertension; I25.2 Old myocardial infarction; Z88.2 Allergy status to sulfonamides
CPT/HCPCS: 36415; 74176; 76705; 80053; 82150; 82550; 83690; 85025; 86704; 86706; 86708; 86803; 87340

== ENCOUNTER → 2019-03-19 | Outpatient (CLI) | payer MEDICARE, OTHER | END | disposition home or self-care (01) | LOC: XYW 10:27 | PROVIDERS: ATTEND Internal Medicine | DX: I51.7 Cardiomegaly (principal); R07.9 Chest pain, unspecified; D50.9 Iron deficiency anemia, unspecified | CPT/HCPCS: 93306 ==

== ENCOUNTER → 2020-02-29 | Outpatient (CLI) | payer MEDICARE, OTHER ==
[~2020-02-29] MED LIST changes: +LISI-648 PO; -LISI10TA6 PO
[2020-02-29 09:30] LABS: Basophils # (auto) 0.1 10 ^3/uL (0-0.2); Basophils % (auto) 1.2 % (0.0-2.0); Eosinophils # (auto) 0.2 10 ^3/uL (0-0.8); Eosinophils % (auto) 2.5 % (0.0-7.0); Hematocrit 41.2 % (41.0-53.0); Hemoglobin 14.5 g/dL (13.5-17.5); Lymphocytes % (auto) 45.7 % (10.0-50.0); Mean Corpuscular Hemoglobin 31.1 pg (28.0-32.0); Mean Corpuscular Hgb Conc. 35.2 g/dL (32.0-36.0); Mean Corpuscular Volume 88.3 fL (80.0-100.0); Monocytes # (auto) 0.4 10 ^3/uL (0-1.3); Monocytes % (auto) 6.1 % (0.0-12.0); Neutrophils # (auto) 2.9 10 ^3/uL (1.6-8.6); Neutrophils % (auto) 44.5 % (37.0-80.0); Nucleated Red Blood Cells % 0.5 %; Platelet Count (auto) 236 10^3/uL (140-450); Red Blood Cells 4.66 10^6/uL (4.5-5.90); Red Cell Distribution Width 13.4 % (11.8-14.3); White Blood Cell 6.5 10^3/uL (4.4-10.8)
[2020-02-29 09:53] LABS: Albumin 3.9 g/dL (3.4-5.0); BUN/Creatinine Ratio 14.5; Calcium 9.3 mg/dL (8.5-10.1); Potassium 3.9 mmol/L (3.5-5.1)
[2020-02-29 10:33] LABS: Bilirubin, Total 0.6 mg/dL (0.2-1.0); Total Protein 7.6 g/dL (6.4-8.2)
== END | disposition home or self-care (01) ==
LOC: LAB 09:05
PROVIDERS: ATTEND Internal Medicine
DX: Z12.5 Encounter for screening for malignant neoplasm of prostate (principal); I48.91 Unspecified atrial fibrillation; E11.9 Type 2 diabetes mellitus without complications; E78.5 Hyperlipidemia, unspecified; Z12.11 Encounter for screening for malignant neoplasm of colon
CPT/HCPCS: 36415; 80053; 80061; 83036; 84153; 85025

== ENCOUNTER → 2020-03-14 | Outpatient (CLI) | payer MEDICARE, OTHER ==
[2020-03-14 10:41] LABS: Urine WBC None Seen /hpf (0 - 3)
[2020-03-14 10:54] LABS: Urine Bacteria MANY /hpf (None Seen); Urine Blood Negative /uL (Negative); Urine Specific Gravity 1.006 (1.001-1.035)
== END | disposition home or self-care (01) ==
LOC: LAB 09:57
PROVIDERS: ATTEND Internal Medicine
DX: Z12.11 Encounter for screening for malignant neoplasm of colon (principal); E11.9 Type 2 diabetes mellitus without complications; I48.91 Unspecified atrial fibrillation; E78.5 Hyperlipidemia, unspecified
CPT/HCPCS: 81001; 82043; 82270

== ENCOUNTER → 2020-03-28 | Outpatient (CLI) | payer MEDICARE, OTHER ==
[~2020-03-28] MED LIST changes: +SPIR25TA PO; -SPIR25TA88 PO
== END | disposition home or self-care (01) ==
LOC: XY 12:09
PROVIDERS: ATTEND Internal Medicine
DX: S90.822A Blister (nonthermal), left foot, initial encounter (principal); I70.203 Unspecified atherosclerosis of native arteries of extremities, bilateral legs; X58.XXXA Exposure to other specified factors, initial encounter; Y93.89 Activity, other specified; Y92.89 Other specified places as the place of occurrence of the external cause; Y99.8 Other external cause status
CPT/HCPCS: 93925

== ENCOUNTER → 2020-04-05 | Outpatient (CLI) | payer MEDICARE, OTHER ==
[2020-04-05 15:43] LABS: Albumin 3.9 g/dL (3.4-5.0); Bilirubin, Direct 0.2 mg/dL (0-0.2); Bilirubin, Total 0.6 mg/dL (0.2-1.0); Total Protein 7.8 g/dL (6.4-8.2)
== END | disposition home or self-care (01) ==
LOC: LAB 14:37
PROVIDERS: ATTEND Internal Medicine
DX: K76.9 Liver disease, unspecified (principal)
CPT/HCPCS: 36415; 80076

== ENCOUNTER → 2020-06-02 | Outpatient (CLI) | payer MEDICARE, OTHER ==
[2020-06-02 16:21] LABS: Albumin 3.9 g/dL (3.4-5.0); Bilirubin, Direct 0.2 mg/dL (0-0.2); Bilirubin, Total 0.6 mg/dL (0.2-1.0); Total Protein 7.4 g/dL (6.4-8.2)
== END | disposition home or self-care (01) ==
LOC: LAB 15:01
PROVIDERS: ATTEND Internal Medicine
DX: K76.9 Liver disease, unspecified (principal)
CPT/HCPCS: 36415; 80061; 80076

== ENCOUNTER 2020-07-19 07:57 | Inpatient (IN) | payer MEDICARE, OTHER ==
[2020-07-17 09:40] LABS: Basophils # (auto) 0.1 10 ^3/uL (0-0.2); Basophils % (auto) 0.6 % (0.0-2.0); Eosinophils # (auto) 0.2 10 ^3/uL (0-0.8); Eosinophils % (auto) 2.1 % (0.0-7.0); Hematocrit 42.1 % (41.0-53.0); Hemoglobin 14.6 g/dL (13.5-17.5); Lymphocytes # (auto) 2.6 10 ^3/uL (0.4-5.4); Lymphocytes % (auto) 30.1 % (10.0-50.0); Mean Corpuscular Hgb Conc. 34.6 g/dL (32.0-36.0); Mean Corpuscular Volume 89.4 fL (80.0-100.0); Monocytes # (auto) 0.5 10 ^3/uL (0-1.3); Monocytes % (auto) 5.3 % (0.0-12.0); Neutrophils # (auto) 5.4 10 ^3/uL (1.6-8.6); Neutrophils % (auto) 61.9 % (37.0-80.0); Nucleated Red Blood Cells % 0.1 %; Platelet Count (auto) 232 10^3/uL (140-450); Red Blood Cells 4.71 10^6/uL (4.5-5.90); Red Cell Distribution Width 13.9 % (11.8-14.3); White Blood Cell 8.7 10^3/uL (4.4-10.8)
[2020-07-17 09:45] LABS: INR 1.3 (0.9-1.15)
[2020-07-17 09:49] LABS: Potassium 4.2 mmol/L (3.5-5.1)
[2020-07-17 09:55] LABS: BUN/Creatinine Ratio 26.3; Bilirubin, Total 0.8 mg/dL (0.2-1.0); Calcium 8.8 mg/dL (8.5-10.1); Total Protein 7.6 g/dL (6.4-8.2)
[~2020-07-19] VITALS: Ht 172.7 cm; Wt 65.3 kg
[~2020-07-19 07:57] MED LIST changes: -AMIO200T4 PO; +ATOR20TA50 PO; +CHOL20007 PO; +CLIN300C8 PO; +GABA300C10 PO; -LISI-648 PO; +LISI-716 PO; +METF-370 PO; +SERT-375 PO; -SPIR25TA PO
[2020-07-19] MEDS ORDERED: fentaNYL CITRATE 100 MCG/2 ML VL ONE ×2 (10:33→13:15)
[2020-07-19] MEDS ORDERED: MIDAZOLAM HCL 1MG/1ML-2 ML VIAL ONE (10:33)
[2020-07-19] MEDS ORDERED: ANGIOMAX 250 MG VIAL IV ONE ×2 (10:33→12:10)
[2020-07-19] MEDS ORDERED: LIDOCAINE 2%HCL (LOCAL ANESTH.) INJ 20ML MDV ONE (10:33)
[2020-07-19] MEDS ORDERED: SODIUM CHL 0.9% 50 ML ONE ×2 (10:33→12:10)
[2020-07-19] MEDS ORDERED: IODIXANOL 320MG/ML 100ML BTL IV ONE ×2 (10:34→13:35)
[2020-07-19] MEDS ORDERED: diphenhdrAMINE HCL 50 MG/1 ML VL ONE (13:32)
[2020-07-19] MEDS ORDERED: ENOXAPARIN SOD 80 MG/0.8ML SYRINGE SC ONE (14:30)
[2020-07-19] MEDS ORDERED: NITROGLYCERIN 0.4 MG SL TAB SL PRN (15:00)
[2020-07-19] MEDS ORDERED: MORPHINE SULF INJ 2 MG/ML SYRINGE 1ML IV PRN (15:00)
[2020-07-19 15:28] LABS: Basophils # (auto) 0.1 10 ^3/uL (0-0.2); Basophils % (auto) 0.6 % (0.0-2.0); Eosinophils # (auto) 0.1 10 ^3/uL (0-0.8); Eosinophils % (auto) 0.8 % (0.0-7.0); Hemoglobin 14.5 g/dL (13.5-17.5); Lymphocytes % (auto) 10.7 % (10.0-50.0); Mean Corpuscular Hemoglobin 30.9 pg (28.0-32.0); Mean Corpuscular Hgb Conc. 34.5 g/dL (32.0-36.0); Mean Corpuscular Volume 89.6 fL (80.0-100.0); Monocytes # (auto) 0.6 10 ^3/uL (0-1.3); Monocytes % (auto) 6.3 % (0.0-12.0); Neutrophils % (auto) 81.6 % (37.0-80.0); Nucleated Red Blood Cells % 0.1 %; Platelet Count (auto) 205 10^3/uL (140-450); Red Blood Cells 4.68 10^6/uL (4.5-5.90); Red Cell Distribution Width 13.9 % (11.8-14.3); White Blood Cell 9.8 10^3/uL (4.4-10.8)
[2020-07-19 15:39] LABS: Calcium 8.9 mg/dL (8.5-10.1); Potassium 4.8 mmol/L (3.5-5.1)
[2020-07-19 15:42] LABS: BUN/Creatinine Ratio 17.6
[2020-07-19 15:53] LABS: INR 3.25 (0.9-1.15)
[2020-07-19 16:02] LABS: Partial Thromboplastin Time 73.2 sec (23.0-31.2)
[2020-07-19 16:53] VITALS: BP 142/85
[2020-07-19 17:12] VITALS: BP 142/85
[2020-07-19] MEDS ORDERED: hydrALAZINE HCL 20 MG/ML VL IV PRN (17:15)
[2020-07-19] MEDS ORDERED: DEXTROSE (50%) 50ML SYRG IV PRN (17:15)
[2020-07-19 20:00] VITALS: BP 109/63
[2020-07-19] MEDS ORDERED: HYDROcodone-ACET 10/325MG TAB PO PRN (20:45)
[2020-07-19] MEDS: ACCU-CHEK COMFORT CURVE STRIP VI SCH (21:53)
[2020-07-19] MEDS: SODIUM CHLOR 0.9% PF (SALINE LOCK) 10ML VIAL/SYR IV SCH (21:55)
[2020-07-19] MEDS: InsuLIN REG 1unit/0.01ml Soln (100units/ml) SC SCH (21:56)
[2020-07-19 22:00] VITALS: BP_SYST 109; BP_SYST 99; BP_DIAS 57; BP_DIAS 63
[2020-07-19] MEDS ORDERED: WARFARIN SODIUM 10 MG TAB PO ONE (22:00)
[2020-07-19] MEDS ORDERED: ATORVASTATIN 20 MG TAB PO SCH (22:00)
[2020-07-19] MEDS: GABAPENTIN 300 MG CAP PO SCH (22:03)
[2020-07-19] MEDS: CARVEDILOL 12.5 MG TAB PO SCH (22:16)
[2020-07-20 05:00] VITALS: BP 96/42
[2020-07-20 05:49] LABS: INR 1.13 (0.9-1.15)
[2020-07-20] MEDS: SODIUM CHLOR 0.9% PF (SALINE LOCK) 10ML VIAL/SYR IV SCH ×2 (06:09→13:39)
[2020-07-20] MEDS: GABAPENTIN 300 MG CAP PO SCH ×2 (06:09→14:19)
[2020-07-20] MEDS: ACCU-CHEK COMFORT CURVE STRIP VI SCH ×3 (06:10→17:00)
[2020-07-20] MEDS: InsuLIN REG 1unit/0.01ml Soln (100units/ml) SC SCH ×3 (06:16→17:00)
[2020-07-20 07:59] VITALS: BP 91/52
[2020-07-20] MEDS ORDERED: LISINOPRIL 10 MG TAB PO SCH (10:00)
[2020-07-20] MEDS: CARVEDILOL 12.5 MG TAB PO SCH (10:00)
[2020-07-20] MEDS ORDERED: PANTOPRAZOLE 40 MG TAB PO SCH (10:00)
[2020-07-20] MEDS ORDERED: SERTRALINE HCL 50 MG TAB PO SCH (10:00)
[2020-07-20 12:20] VITALS: BP 91/48
[2020-07-20] MEDS ORDERED: WARFARIN SODIUM 2 MG TAB PO SCH (17:00)
[2020-07-20] MEDS ORDERED: WARFARIN SODIUM 2 MG TAB PO ONE (17:00)
[2020-07-23] MEDS ORDERED: metFORMIN HYDROCHLORIDE 500 MG TAB PO SCH (10:00)
== END 2020-07-20 18:00 | disposition home or self-care (01) | DRG 253 ==
LOC: CATH 07:57 → WEST WING 07:58
PROVIDERS: ADMIT Internal Medicine; ATTEND Internal Medicine
PROC: 047L3DZ Dilation of Left Femoral Artery with Intraluminal Device, Percutaneous Approach (ICD-10-PCS; principal; 2020-07-19)
PROC: 047L3ZZ Dilation of Left Femoral Artery, Percutaneous Approach (ICD-10-PCS; 2020-07-19)
PROC: B41F1ZZ Fluoroscopy of Right Lower Extremity Arteries using Low Osmolar Contrast (ICD-10-PCS; 2020-07-19)
DX: I70.202 Unspecified atherosclerosis of native arteries of extremities, left leg (principal); D68.69 Other thrombophilia; I50.42 Chronic combined systolic (congestive) and diastolic (congestive) heart failure; E78.5 Hyperlipidemia, unspecified; F32.9 Major depressive disorder, single episode, unspecified; I25.10 Atherosclerotic heart disease of native coronary artery without angina pectoris; Z20.822 Contact with and (suspected) exposure to COVID-19; I11.0 Hypertensive heart disease with heart failure; I48.91 Unspecified atrial fibrillation; Z79.01 Long term (current) use of anticoagulants; Z86.73 Personal history of transient ischemic attack (TIA), and cerebral infarction without residual deficits; Z95.1 Presence of aortocoronary bypass graft; Z88.2 Allergy status to sulfonamides
CPT/HCPCS: 36415; 37224; 37226; 75710; 80048; 80053; 82565; 82962; 84520; 85025; 85610; 85730; 99152; 99153; G0378; J2250; Q9967

== ENCOUNTER → 2020-08-15 | Outpatient (CLI) | payer MEDICARE, OTHER | END | disposition home or self-care (01) | LOC: LAB 14:00 | PROVIDERS: ATTEND Physician Assistant | DX: C44.519 Basal cell carcinoma of skin of other part of trunk (principal); L57.0 Actinic keratosis ==

== ENCOUNTER → 2021-02-01 | Outpatient (CLI) | payer MEDICARE ==
[2021-02-01 16:20] LABS: Cholesterol 99 mg/dL (< 200); HDL Cholesterol 32 mg/dL (40-59); LDL Cholesterol 54 mg/dL (< 100); Triglycerides 100 mg/dL (< 150)
== END | disposition home or self-care (01) ==
LOC: LAB 15:12
PROVIDERS: ATTEND Internal Medicine
DX: E11.9 Type 2 diabetes mellitus without complications (principal); E78.5 Hyperlipidemia, unspecified
CPT/HCPCS: 36415; 80061; 82043; 83036

== ENCOUNTER → 2021-02-07 | Outpatient (CLI) | payer MEDICARE | END | disposition home or self-care (01) | LOC: XYW 11:05 | PROVIDERS: ATTEND Internal Medicine | DX: I08.2 Rheumatic disorders of both aortic and tricuspid valves (principal); I48.91 Unspecified atrial fibrillation | CPT/HCPCS: 93306 ==

== ENCOUNTER → 2021-04-20 | Outpatient (CLI) | payer MEDICARE | END | disposition home or self-care (01) | LOC: LAB 10:04 | PROVIDERS: ATTEND Internal Medicine | DX: Z12.5 Encounter for screening for malignant neoplasm of prostate (principal); Z12.11 Encounter for screening for malignant neoplasm of colon | CPT/HCPCS: 84153 ==

== ENCOUNTER → 2021-05-02 | Outpatient (CLI) | payer MEDICARE | END | disposition home or self-care (01) | LOC: LAB 11:39 | PROVIDERS: ATTEND Internal Medicine | DX: Z12.11 Encounter for screening for malignant neoplasm of colon (principal) | CPT/HCPCS: 82270 ==

== ENCOUNTER → 2021-08-20 | Outpatient (CLI) | payer MEDICARE ==
[2021-08-20 11:11] LABS: Cholesterol 87 mg/dL (< 200); HDL Cholesterol 31 mg/dL (40-59); LDL Cholesterol 51 mg/dL (< 100); Triglycerides 79 mg/dL (< 150)
== END | disposition home or self-care (01) ==
LOC: LAB 10:35
PROVIDERS: ATTEND Internal Medicine
DX: E11.9 Type 2 diabetes mellitus without complications (principal); E78.5 Hyperlipidemia, unspecified
CPT/HCPCS: 36415; 80061; 83036

== ENCOUNTER → 2021-09-10 | Outpatient (CLI) | payer MEDICARE, OTHER | END | disposition home or self-care (01) | LOC: XYW 12:46 | PROVIDERS: ATTEND Internal Medicine | DX: I35.1 Nonrheumatic aortic (valve) insufficiency (principal); I48.91 Unspecified atrial fibrillation | CPT/HCPCS: 93306 ==

== ENCOUNTER → 2021-11-16 | Outpatient (CLI) | payer MEDICARE, OTHER | END | disposition home or self-care (01) | LOC: LAB 11:08 | PROVIDERS: ATTEND Internal Medicine | DX: E11.9 Type 2 diabetes mellitus without complications (principal) | CPT/HCPCS: 36415; 84443 ==

== ENCOUNTER → 2022-02-18 | Outpatient (CLI) | payer MEDICARE, OTHER ==
[2022-02-18 12:50] LABS: Cholesterol 94 mg/dL (< 200); HDL Cholesterol 34 mg/dL (40-59); LDL Cholesterol 52 mg/dL (< 100); Triglycerides 76 mg/dL (< 150)
== END | disposition home or self-care (01) ==
LOC: LAB 11:12
PROVIDERS: ATTEND Internal Medicine
DX: R73.03 Prediabetes (principal); E78.5 Hyperlipidemia, unspecified
CPT/HCPCS: 36415; 80061; 83036

== ENCOUNTER → 2022-02-19 | Outpatient (CLI) | payer MEDICARE ==
[2022-02-19 14:48] LABS: Albumin 3.9 g/dL (3.4-5.0); Potassium 4.8 mmol/L (3.5-5.1)
[2022-02-19 14:50] LABS: Bilirubin, Total 0.7 mg/dL (0.2-1.0); Total Protein 7.3 g/dL (6.4-8.2)
== END | disposition home or self-care (01) ==
LOC: LAB 14:04
PROVIDERS: ATTEND Internal Medicine
DX: I73.9 Peripheral vascular disease, unspecified (principal); E78.5 Hyperlipidemia, unspecified; M79.604 Pain in right leg
CPT/HCPCS: 36415; 80053; 82550

== ENCOUNTER → 2022-02-21 | Outpatient (CLI) | payer MEDICARE | END | disposition home or self-care (01) | LOC: XY 08:51 | PROVIDERS: ATTEND Internal Medicine | DX: I73.9 Peripheral vascular disease, unspecified (principal) | CPT/HCPCS: 93925 ==

== ENCOUNTER 2022-05-08 07:23 | Day surgery (SDC) | payer MEDICARE, OTHER ==
[2022-05-06 10:33] LABS: Basophils # (auto) 0.1 10 ^3/uL (0-0.2); Basophils % (auto) 0.9 % (0.0-2.0); Eosinophils # (auto) 0.1 10 ^3/uL (0-0.8); Eosinophils % (auto) 1.5 % (0.0-7.0); Hematocrit 42.2 % (41.0-53.0); Hemoglobin 14.6 g/dL (13.5-17.5); Lymphocytes # (auto) 2.2 10 ^3/uL (0.4-5.4); Lymphocytes % (auto) 29.5 % (10.0-50.0); Mean Corpuscular Hemoglobin 30.6 pg (28.0-32.0); Mean Corpuscular Hgb Conc. 34.5 g/dL (32.0-36.0); Mean Corpuscular Volume 88.5 fL (80.0-100.0); Monocytes # (auto) 0.4 10 ^3/uL (0-1.3); Monocytes % (auto) 5.8 % (0.0-12.0); Neutrophils # (auto) 4.7 10 ^3/uL (1.6-8.6); Neutrophils % (auto) 62.3 % (37.0-80.0); Nucleated Red Blood Cells % 0.2 %; Red Blood Cells 4.77 10^6/uL (4.5-5.90); Red Cell Distribution Width 13.4 % (11.8-14.3); White Blood Cell 7.5 10^3/uL (4.4-10.8)
[2022-05-06 11:57] LABS: Potassium 4.7 mmol/L (3.5-5.1)
[2022-05-06 12:03] LABS: Albumin 4.1 g/dL (3.4-5.0); BUN/Creatinine Ratio 24.4; Bilirubin, Total 0.8 mg/dL (0.2-1.0); Calcium 9.1 mg/dL (8.5-10.1); Total Protein 7.8 g/dL (6.4-8.2)
[2022-05-06 12:47] LABS: INR 1.19 (0.9-1.15); Partial Thromboplastin Time 34.1 sec (24.6-33.4)
[~2022-05-08] VITALS: Ht 172.7 cm; Wt 81.6 kg
[2022-05-08] VITALS (11 sets, daily range): BP systolic 108–135; BP diastolic 67–82
[~2022-05-08 07:23] MED LIST changes: +CILO100T PO; -CLIN300C8 PO; +EZET-10 PO; +FAMO20TA10 PO; +LORA-622 PO; -PANT40T PO; -WARF2TAB PO; +WARF4TAB33 PO
[2022-05-08] MEDS ORDERED: HEPARIN IN NS 1000Units/500mL 1,500 ML ONE (08:18)
[2022-05-08] MEDS ORDERED: LIDOCAINE 2%HCL (LOCAL ANESTH.) INJ 20ML MDV ONE (08:18)
[2022-05-08] MEDS ORDERED: IODIXANOL 320MG/ML 100ML BTL IV ONE ×2 (08:18→08:50)
[2022-05-08] MEDS ORDERED: fentaNYL CITRATE 100 MCG/2 ML VL ONE (08:21)
[2022-05-08] MEDS ORDERED: ANGIOMAX 250 MG VIAL IV ONE (08:21)
[2022-05-08] MEDS ORDERED: MIDAZOLAM HCL 2MG/2ML 2ml VIAL (1mg/ml) ONE (08:22)
[2022-05-08] MEDS ORDERED: SODIUM CHL 0.9% 50 ML ONE (08:22)
== END 2022-05-08 15:50 | disposition home or self-care (01) ==
LOC: CATH 07:23
PROVIDERS: ATTEND Internal Medicine
DX: I70.202 Unspecified atherosclerosis of native arteries of extremities, left leg (principal); Z20.822 Contact with and (suspected) exposure to COVID-19
CPT/HCPCS: 36415; 37224; 75716; 80053; 85025; 85610; 85730; C1894; J0583; J1644; J2250; J3010; J7030; Q9967; U0003

== ENCOUNTER → 2022-05-15 | Day surgery (SDC) | payer MEDICARE, OTHER ==
[2022-05-13 12:02] LABS: Basophils # (auto) 0.1 10 ^3/uL (0-0.2); Basophils % (auto) 0.8 % (0.0-2.0); Eosinophils # (auto) 0.1 10 ^3/uL (0-0.8); Eosinophils % (auto) 1.6 % (0.0-7.0); Hematocrit 40.3 % (41.0-53.0); Hemoglobin 13.7 g/dL (13.5-17.5); Mean Corpuscular Hemoglobin 30.5 pg (28.0-32.0); Mean Corpuscular Hgb Conc. 33.9 g/dL (32.0-36.0); Mean Corpuscular Volume 89.7 fL (80.0-100.0); Monocytes # (auto) 0.5 10 ^3/uL (0-1.3); Monocytes % (auto) 6.4 % (0.0-12.0); Neutrophils # (auto) 4.6 10 ^3/uL (1.6-8.6); Neutrophils % (auto) 63.2 % (37.0-80.0); Red Blood Cells 4.49 10^6/uL (4.5-5.90); Red Cell Distribution Width 14.1 % (11.8-14.3); White Blood Cell 7.3 10^3/uL (4.4-10.8)
[2022-05-13 12:15] LABS: INR 0.99 (0.9-1.15); Partial Thromboplastin Time 29.1 sec (24.6-33.4)
[2022-05-13 12:38] LABS: Albumin 3.9 g/dL (3.4-5.0); BUN/Creatinine Ratio 20.9; Calcium 8.9 mg/dL (8.5-10.1); Potassium 4.7 mmol/L (3.5-5.1)
[2022-05-13 12:41] LABS: Bilirubin, Total 0.6 mg/dL (0.2-1.0)
[2022-05-13 14:50] LABS: Total Protein 7.6 g/dL (6.4-8.2)
[~2022-05-15] VITALS: Ht 172.7 cm; Wt 81.6 kg
[~2022-05-15] MED LIST changes: +MIDAZOLAM HCL 2MG/2ML 2ml VIAL (1mg/ml) ONE; +diphenhdrAMINE HCL 50 MG/1 ML VL ONE
[2022-05-15] MEDS: fentaNYL CITRATE 100 MCG/2 ML VL ONE ×2 (14:49→14:55)
[2022-05-15 16:10] VITALS: BP 139/95
== END | disposition home or self-care (01) ==
LOC: GI 12:19
PROVIDERS: ATTEND Internal Medicine Gastroenterology
DX: R19.4 Change in bowel habit (principal); K63.5 Polyp of colon; K62.1 Rectal polyp; K64.8 Other hemorrhoids; I10 Essential (primary) hypertension; E11.9 Type 2 diabetes mellitus without complications; I21.29 ST elevation (STEMI) myocardial infarction involving other sites; Z88.2 Allergy status to sulfonamides; Z82.49 Family history of ischemic heart disease and other diseases of the circulatory system; Z83.3 Family history of diabetes mellitus; Z80.1 Family history of malignant neoplasm of trachea, bronchus and lung; Z95.5 Presence of coronary angioplasty implant and graft; Z87.891 Personal history of nicotine dependence; Z79.899 Other long term (current) drug therapy; Z98.890 Other specified postprocedural states; Z20.822 Contact with and (suspected) exposure to COVID-19
CPT/HCPCS: 36415; 45385; 80053; 82962; 85025; 85610; 85730; J1200; J2250; J3010; J7030; U0003; 99152

== ENCOUNTER → 2022-05-21 | Outpatient (CLI) | payer MEDICARE ==
[~2022-05-21] MED LIST changes: -MIDAZOLAM HCL 2MG/2ML 2ml VIAL (1mg/ml) ONE; -diphenhdrAMINE HCL 50 MG/1 ML VL ONE
[2022-05-21 15:17] LABS: Basophils # (auto) 0.1 10 ^3/uL (0-0.2); Basophils % (auto) 1.1 % (0.0-2.0); Eosinophils # (auto) 0.1 10 ^3/uL (0-0.8); Eosinophils % (auto) 1.6 % (0.0-7.0); Hematocrit 40.9 % (41.0-53.0); Lymphocytes # (auto) 2.6 10 ^3/uL (0.4-5.4); Lymphocytes % (auto) 33.4 % (10.0-50.0); Mean Corpuscular Hemoglobin 30.5 pg (28.0-32.0); Mean Corpuscular Hgb Conc. 34.3 g/dL (32.0-36.0); Mean Corpuscular Volume 88.9 fL (80.0-100.0); Monocytes # (auto) 0.5 10 ^3/uL (0-1.3); Neutrophils # (auto) 4.4 10 ^3/uL (1.6-8.6); Neutrophils % (auto) 56.9 % (37.0-80.0); Red Blood Cells 4.61 10^6/uL (4.5-5.90); Red Cell Distribution Width 14.1 % (11.8-14.3); White Blood Cell 7.6 10^3/uL (4.4-10.8)
[2022-05-21 15:52] LABS: Creatinine, Urine 62 mg/dL (30.0-125.0)
[2022-05-21 16:01] LABS: Micro Albumin < 5.00 mg/L (0-30.0)
== END | disposition home or self-care (01) ==
LOC: LAB 15:03
PROVIDERS: ATTEND Internal Medicine
DX: I10 Essential (primary) hypertension (principal); E11.59 Type 2 diabetes mellitus with other circulatory complications; E78.5 Hyperlipidemia, unspecified
CPT/HCPCS: 36415; 82043; 82570; 85025

== ENCOUNTER → 2022-06-06 | Outpatient (CLI) | payer MEDICARE, OTHER | END | disposition home or self-care (01) | LOC: XYW 14:26 | PROVIDERS: ATTEND Internal Medicine | DX: I08.0 Rheumatic disorders of both mitral and aortic valves (principal); I48.91 Unspecified atrial fibrillation | CPT/HCPCS: 93306 ==

== ENCOUNTER → 2022-11-11 | Outpatient (CLI) | payer MEDICARE ==
[~2022-11-11] MED LIST changes: +GABA-1250 PO; -GABA300C10 PO; -LISI-716 PO; +LISI10TA34 PO; +WARF-112 PO; -WARF4TAB33 PO
[2022-11-11 11:55] LABS: Triglycerides 60 mg/dL (< 150)
[2022-11-11 11:56] LABS: LDL Cholesterol 45 mg/dL (< 100)
[2022-11-11 11:57] LABS: Cholesterol 92 mg/dL (< 200); HDL Cholesterol 30 mg/dL (40-59)
[2022-11-11 12:07] LABS: Creatinine, Urine 116.16 mg/dL (30.0-125.0)
[2022-11-11 12:09] LABS: Micro Albumin < 3.0 mg/L (<30.0)
== END | disposition home or self-care (01) ==
LOC: LAB 10:56
PROVIDERS: ATTEND Internal Medicine
DX: Z12.5 Encounter for screening for malignant neoplasm of prostate (principal); I73.9 Peripheral vascular disease, unspecified; E11.9 Type 2 diabetes mellitus without complications; I25.5 Ischemic cardiomyopathy
CPT/HCPCS: 36415; 80061; 82043; 82570; 83036; 84153

== ENCOUNTER → 2023-06-23 | Outpatient (CLI) | payer OTHER ==
[~2023-06-23] MED LIST changes: -CAR125T PO; +CARV-216 PO; -CILO100T PO; +CILO100T3 PO
== END | disposition home or self-care (01) ==
LOC: LAB 15:37
PROVIDERS: ATTEND Internal Medicine
DX: Z00.00 Encounter for general adult medical examination without abnormal findings (principal); R73.03 Prediabetes
CPT/HCPCS: 82270

== ENCOUNTER → 2023-10-20 | Outpatient (CLI) | payer OTHER ==
[2023-10-20 10:58] LABS: Urine Bacteria None Seen /hpf (None Seen)
[2023-10-20 11:04] LABS: Basophils # (auto) 0.1 10 ^3/uL (0-0.2); Eosinophils # (auto) 0.1 10 ^3/uL (0-0.8); Eosinophils % (auto) 1.6 % (0.0-7.0); Hematocrit 42.7 % (41.0-53.0); Hemoglobin 14.5 g/dL (13.5-17.5); Lymphocytes # (auto) 2.2 10 ^3/uL (0.4-5.4); Lymphocytes % (auto) 29.7 % (10.0-50.0); Mean Corpuscular Hemoglobin 30.4 pg (28.0-32.0); Mean Corpuscular Hgb Conc. 33.9 g/dL (32.0-36.0); Mean Corpuscular Volume 89.7 fL (80.0-100.0); Monocytes # (auto) 0.4 10 ^3/uL (0-1.3); Monocytes % (auto) 6.1 % (0.0-12.0); Neutrophils # (auto) 4.5 10 ^3/uL (1.6-8.6); Neutrophils % (auto) 61.6 % (37.0-80.0); Nucleated Red Blood Cells % 0.1 %; Platelet Count (auto) 227 10^3/uL (140-450); Red Blood Cells 4.76 10^6/uL (4.5-5.90); White Blood Cell 7.3 10^3/uL (4.4-10.8)
[2023-10-20 11:30] LABS: Urine Blood Negative /uL (Negative); Urine Clarity Clear (Clear); Urine Color Light-Yellow (Yellow); Urine Protein, UAD Negative (Negative); Urine Urobilinogen Normal (Negative); Urine WBC <1 /hpf (0 - 3); Urine pH 5.5 (5.0-9.0)
[2023-10-20 11:38] LABS: Alanine Aminotransferase 19 U/L (7-40); Albumin 4.3 g/dL (3.2-4.8); Alkaline Phosphatase 69 U/L (46-116); Anion Gap 6 (5-15); Aspartate Aminotransferase 12 U/L (13-40); BUN/Creatinine Ratio 16.8 (10.0-20.0); Blood Urea Nitrogen 22 mg/dL (9-23); Calcium 9.2 mg/dL (8.7-10.4); Carbon Dioxide 22 mmol/L (20-30); Chloride 105 mmol/L (98-107); Glucose 119 mg/dL (74-106); Potassium 4.7 mmol/L (3.5-5.1); Sodium 133 mmol/L (136-145)
[2023-10-20 11:39] LABS: Total Protein 7.4 g/dL (5.7-8.2)
== END | disposition home or self-care (01) ==
LOC: LAB 10:47
PROVIDERS: ATTEND Internal Medicine
DX: I10 Essential (primary) hypertension (principal); R73.03 Prediabetes
CPT/HCPCS: 36415; 80053; 81001; 83036; 85025

== ENCOUNTER → 2024-01-19 | Outpatient (CLI) | payer OTHER ==
[2024-01-19 11:16] LABS: Alanine Aminotransferase 17 U/L (7-40); Albumin 4.5 g/dL (3.2-4.8); Alkaline Phosphatase 62 U/L (46-116); Anion Gap 7 (5-15); Aspartate Aminotransferase 11 U/L (13-40); BUN/Creatinine Ratio 19.7 (10.0-20.0); Blood Urea Nitrogen 27 mg/dL (9-23); Calcium 9.9 mg/dL (8.7-10.4); Carbon Dioxide 24 mmol/L (20-31); Chloride 107 mmol/L (98-107); Glucose 111 mg/dL (74-106); LDL Cholesterol 55 mg/dL (< 100); Sodium 138 mmol/L (136-145); Triglycerides 76 mg/dL (< 150)
[2024-01-19 11:17] LABS: Bilirubin, Total 0.7 mg/dL (0.2-1.0); Cholesterol 105 mg/dL (< 200); HDL Cholesterol 35 mg/dL (40-59); Total Protein 7.3 g/dL (5.7-8.2)
[2024-01-19 11:33] LABS: Potassium 5.6 mmol/L (3.5-5.1)
== END | disposition home or self-care (01) ==
LOC: LAB 10:35
PROVIDERS: ATTEND Internal Medicine
DX: R73.03 Prediabetes (principal); N18.30 Chronic kidney disease, stage 3 unspecified
CPT/HCPCS: 36415; 80053; 80061

== ENCOUNTER → 2024-01-22 | Outpatient (CLI) | payer OTHER ==
[2024-01-22 15:44] LABS: Chloride 109 mmol/L (98-107); Potassium 5.1 mmol/L (3.5-5.1); Sodium 140 mmol/L (136-145)
[2024-01-22 15:45] LABS: Anion Gap 7 (5-15); Carbon Dioxide 24 mmol/L (20-31)
[2024-01-22 15:51] LABS: BUN/Creatinine Ratio 19.1 (10.0-20.0); Blood Urea Nitrogen 27 mg/dL (9-23); Glucose 96 mg/dL (74-106)
== END | disposition home or self-care (01) ==
LOC: LAB 15:09
PROVIDERS: ATTEND Internal Medicine
DX: E11.9 Type 2 diabetes mellitus without complications (principal)
CPT/HCPCS: 36415; 80048

== ENCOUNTER → 2024-02-04 | Outpatient (CLI) | payer OTHER ==
[2024-02-04 11:10] LABS: Chloride 106 mmol/L (98-107); Potassium 4.9 mmol/L (3.5-5.1); Sodium 139 mmol/L (136-145)
[2024-02-04 11:11] LABS: Anion Gap 8 (5-15); Calcium 10.2 mg/dL (8.7-10.4); Carbon Dioxide 25 mmol/L (20-31)
[2024-02-04 11:16] LABS: BUN/Creatinine Ratio 27.8 (10.0-20.0)
[2024-02-04 11:20] LABS: Blood Urea Nitrogen 37 mg/dL (9-23); Glucose 112 mg/dL (74-106)
== END | disposition home or self-care (01) ==
LOC: LAB 10:09
PROVIDERS: ATTEND Internal Medicine
DX: E87.5 Hyperkalemia (principal); E78.5 Hyperlipidemia, unspecified
CPT/HCPCS: 36415; 80048

== ENCOUNTER 2024-09-20 14:46 | Outpatient (CLI) | payer OTHER ==
[2024-09-20 15:29] LABS: Alanine Aminotransferase 22 U/L (7-40); Albumin 4.5 g/dL (3.2-4.8); Alkaline Phosphatase 68 U/L (46-116); Anion Gap 9 (5-15); BUN/Creatinine Ratio 20.0 (10.0-20.0); Bilirubin, Total 0.7 mg/dL (0.2-1.0); Calcium 9.7 mg/dL (8.7-10.4); Carbon Dioxide 23 mmol/L (20-31); Chloride 104 mmol/L (98-107); Glucose 102 mg/dL (74-106); Potassium 4.4 mmol/L (3.5-5.1); Sodium 136 mmol/L (136-145); Total Protein 7.0 g/dL (5.7-8.2)
[2024-09-20 15:42] LABS: Blood Urea Nitrogen 28 mg/dL (9-23)
== END 2024-09-20 17:00 | disposition home or self-care (01) ==
LOC: LAB 14:46
PROVIDERS: ATTEND Internal Medicine
DX: E11.9 Type 2 diabetes mellitus without complications (principal); Z12.11 Encounter for screening for malignant neoplasm of colon
CPT/HCPCS: 36415; 80053; 82270; 83036